=== PATIENT | male | born 1985 | race American Indian/Alaskan Native ===

== ENCOUNTER 2021-10-03 18:32 | Inpatient (IN) | payer SELFPAY ==
[2021-10-03] MEDS ORDERED: IPRATROPIUM/ALBUTEROL SULFATE 3 ML AMPUL.NEB IH ONE (19:13)
[2021-10-03] MEDS ORDERED: ALBUTEROL 2.5 MG/3 ML NEBU IH ONE ×4 (19:13→20:53)
[2021-10-03] MEDS ORDERED: BENZONATATE 100 MG CAP PO ONE (19:32)
[2021-10-03] MEDS ORDERED: IPRATROPIUM 0.02% NEBU 2.5 ML IH ONE ×3 (19:32→20:53)
[2021-10-03] MEDS ORDERED: methylPREDNISolone Sod Succinate 125 MG/2 ML INJ IM ONE (19:32)
[2021-10-03] MEDS ORDERED: ACETAMINOPHEN W/CODEINE 300-30 MG TAB PO ONE (19:32)
--- NOTE | 2021-10-03 19:52 | XRay Report ---
Chest single view INDICATION: Dyspnea IMPRESSION: The lungs appear slightly hyperexpanded and there is pleural-parenchymal thickening along the right lung base. Signer Name: Osei España MD Signed: 10/03/2021 7:47 PM Workstation Name: Exie
[2021-10-03] MEDS ORDERED: MAGNESIUM SULFATE 2 GM/50 ML BAG IV ONE (20:00)
--- NOTE | 2021-10-03 21:08 | Emergency Department Report ---
ED Shortness of Breath HPI - General Chief Complaint: Dyspnea/Respdistress Stated Complaint: JAVIER Time Seen by Provider: 10/03/21 19:29 Source: patient Mode of arrival: Ambulatory Limitations: No Limitations - History of Present Illness Initial Comments: 36-year-old male with a past medical history of asthma and 1 intubation last year presents to the hospital complaining of wheezing and short of breath since last night. Patient has been taking bronchodilators all day and using Singulair without improvement. Symptoms worsened this evening. Patient initially placed in a CC however, brought to my attention due to increased diaphoresis and respiratory distress despite bronchodilators. Productive cough reported without fever BiPAP initiated. Patient has a history of BiPAP in the past. - Related Data Allergies Allergy/AdvReac Type Severity Reaction Status Date / Time No Known Allergies Allergy Unverified 10/03/21 19:06 ED Review of Systems ROS: Stated complaint: JAVIER Other details as noted in HPI Comment: All other systems reviewed and negative ED Past Medical Hx - Past Medical History Previous Medical History?: Yes Hx Asthma: Yes ED Physical Exam - General Limitations: No Limitations - Other Other exam information: General: Acute respiratory distress Head: Atraumatic Eyes: normal appearance ENT: Moist mucous membranes Neck: Normal appearance, no midline tenderness Chest: Tachypnea, excessive muscle use, inspiratory and expiratory wheeze, unable to speak due to shortness of CV: Tachycardic regular rhythm Abdomen: Soft, normal bowel sounds, nontender, nondistended, no rebound or guarding Back: Normal inspection Extremity: Normal inspection, full range of motion Neuro: Alert O x 3, no facial asymmetry, speech clear, no gross motor sensory deficit Psych: Appropriate behavior Skin: Diaphoretic ED Course Vital Signs 10/03/21 10/03/21 10/03/21 19:05 19:39 20:49 Temperature 98.2 F Pulse Rate 133 H 133 H Pulse Rate [ 133 H Bilateral] Respiratory 18 23 Rate Respiratory 20 Rate [Bilateral ] Blood Pressure 138/95 [Left] O2 Sat by Pulse 92 99 Oximetry 10/03/21 10/03/21 20:54 22:11 Temperature 98 F Pulse Rate 132 H Pulse Rate [ 128 H Bilateral] Respiratory 18 Rate Respiratory 20 Rate [Bilateral ] Blood Pressure 118/100 [Left] O2 Sat by Pulse 99 Oximetry ED Medical Decision Making - Lab Data Result diagrams: 10/03/21 21:08 10/03/21 21:08 Lab Results 10/03/21 10/03/21 Range/Units 21:08 21:08 WBC 17.8 H (4.5-11.0) K/mm3 RBC 5.69 H (3.65-5.03) M/mm3 Hgb 17.0 H (11.8-15.2) gm/dl Hct 51.0 H (35.5-45.6) % MCV 90 (84-94) fl MCH 30 (28-32) pg MCHC 33 (32-34) % RDW 14.7 (13.2-15.2) % Plt Count 244 (140-440) K/mm3 Lymph % (Auto) 7.0 L (13.4-35.0) % Quay % (Auto) 3.9 (0.0-7.3) % Eos % (Auto) 0.4 (0.0-4.3) % Baso % (Auto) 0.6 (0.0-1.8) % Lymph # (Auto) 1.3 (1.2-5.4) K/mm3 Quay # (Auto) 0.7 (0.0-0.8) K/mm3 Eos # (Auto) 0.1 (0.0-0.4) K/mm3 Baso # (Auto) 0.1 (0.0-0.1) K/mm3 Seg Neutrophils % 88.1 H (40.0-70.0) % Seg Neutrophils # 15.7 H (1.8-7.7) K/mm3 Sodium 139 (137-145) mmol/L Potassium 4.3 (3.6-5.0) mmol/L Chloride 97.0 L (98-107) mmol/L Carbon Dioxide 25 (22-30) mmol/L Anion Gap 21 mmol/L BUN 14 (9-20) mg/dL Creatinine 1.0 (0.8-1.3) mg/dL Estimated GFR > 60 ml/min BUN/Creatinine Ratio 14 % Glucose 122 H (75-100) mg/dL Calcium 9.8 (8.4-10.2) mg/dL - EKG Data -: EKG Interpreted by Wi EKG shows normal: sinus rhythm, ST-T waves (No STEMI) Rate: tachycardia (129) - Radiology Data Radiology results: report reviewed Chest single view INDICATION: Dyspnea IMPRESSION: The lungs appear slightly hyperexpanded and there is pleural-parenchymal thickening along the right lung base. - Medical Decision Making 36-year-old male with asthma presents with acute respiratory distress requiring aggressive continuous bronchodilators and BiPAP support. X-ray without infiltrate. Mild leukocytosis noted which could be secondary to stress reaction. Patient also treated with Solu-Medrol and magnesium. Patient will be admitted to the hospitalist service for admission Critical Care Time: Yes Critical care time in (mins) excluding proc time.: 40 Critical care attestation.: If time is entered above; I have spent that time in minutes in the direct care of this critically ill patient, excluding procedure time. Critical Care Time: 40 Minutes of critical care time excluding procedures were used in the care of the patient. I discussed treatment plan with the nursing team members. I reviewed electronic record. Patient required multiple interventions and reassessments. Patient to be admitted to the hospitalist service ED Disposition Clinical Impression: Status asthmaticus Disposition: ADMITTED INPATIENT Is pt being admited?: Yes Condition: Stable Time of Disposition: 22:15
[2021-10-03 21:32] LABS: Basophils # (Auto) 0.1 K/mm3 (0.0-0.1); Basophils % (Auto) 0.6 % (0.0-1.8); Eosinophils # (Auto) 0.1 K/mm3 (0.0-0.4); Eosinophils % (Auto) 0.4 % (0.0-4.3); Lymphocytes # (Auto) 1.3 K/mm3 (1.2-5.4); Mean Corpuscular HGB Conc 33 % (32-34); Mean Corpuscular Volume 90 fl (84-94); Monocytes # (Auto) 0.7 K/mm3 (0.0-0.8); Monocytes % (Auto) 3.9 % (0.0-7.3); Platelet Count 244 K/mm3 (140-440); Red Blood Count 5.69 M/mm3 (3.65-5.03); Red Cell Distribution Width 14.7 % (13.2-15.2)
[2021-10-03 21:50] LABS: BUN/Creatinine Ratio 14; Blood Urea Nitrogen 14 mg/dL (9-20); Calcium 9.8 mg/dL (8.4-10.2); Hemolysis Index 7
[2021-10-03] MEDS ORDERED: MORPHINE 2 MG/1 ML INJ IV PRN (23:02)
[2021-10-03] MEDS ORDERED: ACETAMINOPHEN 325 MG TAB PO PRN (23:02)
[2021-10-03] MEDS ORDERED: MORPHINE 4 MG/1 ML INJ IV PRN (23:02)
[2021-10-03] MEDS ORDERED: ONDANSETRON 4 MG/2 ML INJ IV PRN (23:02)
[2021-10-03] MEDS ORDERED: ALBUTEROL 2.5 MG/3 ML NEBU IH PRN (23:02)
--- NOTE | 2021-10-03 23:09 | History and Physical Report ---
History of Present Illness Date of examination: 10/03/21 Date of admission: 10/03/21 Chief complaint: Dyspnea Acute asthma exacerbation History of present illness: 36-year-old male with history of asthma and intubation last year was brought to the emergency room because of wheezing and short of breath since last night. Patient has been taking bronchodilators all day and using Singulair without improvement. Symptoms worsened this evening. Patient initially placed in a CC however, brought to my attention due to increased diaphoresis and respiratory distress despite bronchodilators. Productive cough reported without fever BiPAP initiated. Patient has a history of BiPAP in the past. In the emergency room patient is found to have WBC of 17.8 also patient is found to have acute asthma exacerbation so going to admit the patient we will put the patient on BiPAP, Solu-Medrol, antibiotic and singular Past History Past Medical History: other (Asthma and intubation) Past Surgical History: No surgical history Social history: smoking Family history: hypertension Medications and Allergies Allergies Allergy/AdvReac Type Severity Reaction Status Date / Time No Known Allergies Allergy Unverified 10/03/21 19:06 Review of Systems All systems: negative Cardiovascular: shortness of breath, dyspnea on exertion Respiratory: cough, shortness of breath, dyspnea on exertion, wheezing Exam - Constitutional Vitals: Temp Pulse Resp BP Pulse Ox 98 F 132 H 18 118/100 99 10/03/21 22:11 10/03/21 22:11 10/03/21 22:11 10/03/21 22:11 10/03/21 22:11 General appearance: Present: mild distress, well-nourished - EENT Eyes: Present: PERRL ENT: hearing intact, clear oral mucosa - Neck Neck: Present: supple, normal ROM - Respiratory Respiratory effort: normal Respiratory: bilateral: wheezing - Cardiovascular Heart Sounds: Present: S1 & S2. Absent: rub, click - Extremities Extremities: pulses symmetrical, No edema Peripheral Pulses: within normal limits - Abdominal General gastrointestinal: Present: soft, non-tender, non-distended, normal bowel sounds Male genitourinary: Present: normal - Integumentary Integumentary: Present: clear, warm, dry - Musculoskeletal Musculoskeletal: gait normal, strength equal bilaterally - Psychiatric Psychiatric: appropriate mood/affect, intact judgment & insight - Neurologic Neurologic: CNII-XII intact, moves all extremities Results - Labs CBC & Chem 7: 10/03/21 21:08 10/03/21 21:08 Labs: Laboratory Last Values WBC 17.8 K/mm3 (4.5-11.0) H 10/03/21 21:08 RBC 5.69 M/mm3 (3.65-5.03) H 10/03/21 21:08 Hgb 17.0 gm/dl (11.8-15.2) H 10/03/21 21:08 Hct 51.0 % (35.5-45.6) H 10/03/21 21:08 MCV 90 fl (84-94) 10/03/21 21:08 MCH 30 pg (28-32) 10/03/21 21:08 MCHC 33 % (32-34) 10/03/21 21:08 RDW 14.7 % (13.2-15.2) 10/03/21 21:08 Plt Count 244 K/mm3 (140-440) 10/03/21 21:08 Lymph % (Auto) 7.0 % (13.4-35.0) L 10/03/21 21:08 Kemper % (Auto) 3.9 % (0.0-7.3) 10/03/21 21:08 Eos % (Auto) 0.4 % (0.0-4.3) 10/03/21 21:08 Baso % (Auto) 0.6 % (0.0-1.8) 10/03/21 21:08 Lymph # (Auto) 1.3 K/mm3 (1.2-5.4) 10/03/21 21:08 Kemper # (Auto) 0.7 K/mm3 (0.0-0.8) 10/03/21 21:08 Eos # (Auto) 0.1 K/mm3 (0.0-0.4) 10/03/21 21:08 Baso # (Auto) 0.1 K/mm3 (0.0-0.1) 10/03/21 21:08 Seg Neutrophils % 88.1 % (40.0-70.0) H 10/03/21 21:08 Seg Neutrophils # 15.7 K/mm3 (1.8-7.7) H 10/03/21 21:08 Sodium 139 mmol/L (137-145) 10/03/21 21:08 Potassium 4.3 mmol/L (3.6-5.0) 10/03/21 21:08 Chloride 97.0 mmol/L (98-107) L 10/03/21 21:08 Carbon Dioxide 25 mmol/L (22-30) 10/03/21 21:08 Anion Gap 21 mmol/L 10/03/21 21:08 BUN 14 mg/dL (9-20) 10/03/21 21:08 Creatinine 1.0 mg/dL (0.8-1.3) 10/03/21 21:08 Estimated GFR > 60 ml/min 10/03/21 21:08 BUN/Creatinine Ratio 14 % 10/03/21 21:08 Glucose 122 mg/dL (75-100) H 10/03/21 21:08 Calcium 9.8 mg/dL (8.4-10.2) 10/03/21 21:08 - Imaging and Cardiology Chest x-ray: report reviewed Assessment and Plan VTE prophylaxis?: Chemical Plan of care discussed with patient/family: Yes - Patient Problems (1) Status asthmaticus Current Visit: Yes Status: Acute Plan to address problem: Admit the patient to the medical telemetry. Patient is on BiPAP. DuoNeb by nebulizer every 4 hours. Albuterol via nebulizer every 4 hours as needed. Solu-Medrol 40 mg IV every 6 hours. Singular 10 mg p.o. daily. Rocephin 2 g IV daily and Zithromax to 50 mg p.o. daily. We will do the blood culture and sputum culture. Recheck CBC in the morning (2) Tobacco abuse Current Visit: Yes Status: Acute Plan to address problem: We counseled the patient regarding quitting smoking. We will put the patient on nicotine patch if needed (3) Shortness of breath Current Visit: Yes Status: Acute Plan to address problem: Patient is on BiPAP. DuoNeb by nebulizer every 4 hours. Albuterol via nebulizer every 4 hours as needed. Solu-Medrol 40 mg IV every 6 hours. Singular 10 mg p.o. daily. Rocephin 2 g IV daily and Zithromax to 50 mg p.o. daily. We will do the blood culture and sputum culture. Recheck CBC in the morning (4) DVT prophylaxis Current Visit: Yes Status: Acute Plan to address problem: SCD for DVT prophylaxis. Pepcid 20 mg p.o. twice daily for GI prophylaxis. Patient is a full code
[2021-10-03] MEDS ORDERED: cefTRIAXone/NS 2 GM/100 ML 2 GM/100 ML BAG IV SCH (23:45)
[2021-10-04] MEDS: methylPREDNISolone Sod Succinate 125 MG/2 ML INJ IV SCH ×3 (00:15→18:15)
[2021-10-04] MEDS: methylPREDNISolone Sod Succinate 40 MG/1 ML INJ IV SCH ×2 (00:38→05:53)
[2021-10-04] MEDS ORDERED: ONDANSETRON 4 MG/2 ML INJ IV PRN (00:46)
[2021-10-04] MEDS: IPRATROPIUM/ALBUTEROL SULFATE 3 ML AMPUL.NEB IH SCH ×4 (01:39→20:30)
[2021-10-04 05:29] LABS: Hematocrit 53.9 % (35.5-45.6); Hemoglobin 17.4 gm/dl (11.8-15.2); Mean Corpuscular HGB Conc 32 % (32-34); Mean Corpuscular Volume 91 fl (84-94); Platelet Count 230 K/mm3 (140-440); Red Blood Count 5.91 M/mm3 (3.65-5.03); Red Cell Distribution Width 14.8 % (13.2-15.2)
[2021-10-04 05:37] LABS: BUN/Creatinine Ratio 17; Blood Urea Nitrogen 17 mg/dL (9-20); Calcium 9.5 mg/dL (8.4-10.2); Hemolysis Index 6
[2021-10-04 08:00] LABS: Band Neutrophils # (Manual) 0.1 K/mm3; Basophils % (Manual) 0 % (0.0-1.8); Eosinophils % (Manual) 0 % (0.0-4.3); Monocytes % (Manual) 0 % (0.0-7.3); Platelet Estimate Consistent w Auto; RBC Morphology Normal; Total Cells Counted 100
[2021-10-04] MEDS ORDERED: SODIUM POLYSTYRENE 15 GM/60 ML ORAL LIQD PO SCH (09:00)
[2021-10-04] MEDS: BUDESONIDE 0.5 MG/2 ML NEBU IH SCH ×2 (09:10→20:30)
--- NOTE | 2021-10-04 09:18 | Electrocardiograph Report ---
[facility] Test Date: 2021-10-03 Test Time: 20:22:52 Pat Name: FIONA NEVES Department: Room: A466 1 Gender: M Room Inspector: LARISA : 1985 Requested By: EARL CAMARA Order Number: [id number] Reading MD: Abhinav Rivas Measurements Intervals Geraldine Rate: 129 P: 91 CO: 151 QRS: 87 QRSD: 82 T: 49 QT: 301 QTc: 440 Interpretive Statements Sinus tachycardia LAE, consider biatrial enlargement No previous ECG available for comparison Electronically Signed On 10-04-2021 9:18:08 EDT by Abhinav Rivas
[2021-10-04] MEDS ORDERED: AZITHROMYCIN 250 MG TAB PO SCH (10:00)
[2021-10-04] MEDS: FAMOTIDINE 20 MG TAB PO SCH ×2 (11:09→21:32)
--- NOTE | 2021-10-04 11:42 | Progress Note ---
Assessment and Plan Assessment and plan: #Status asthmaticus Currently on BiPAP. Continue DuoNebs every 4 hours and albuterol nebs every 4 hours as needed Continue IV Solu-Medrol 40 mg every 8 hours, Singulair 10 mg daily Pending coronavirus PCR. Discontinuing Rocephin and azithromycin as there is low clinical suspicion for infection. Pulmonology consulted; pending recs Continue to monitor #Tobacco dependence #Tobacco/Smoking cessation counseling - Counseled patient about the importance of smoking cessation and the possible sequelae as a result of continued tobacco consumption. The patient expresses understanding. -Time: +15 mins Critical Care Billing: The high probability of a clinically significant, sudden or life threatening deterioration of the [respiratory] system(s) required my full and direct attention, intervention and personal management. The aggregate critical care time was [60] minutes. This time is in addition to time spent performing reported procedures but includes the following: [x] Data Review and interpretation [x] Patient assessment and monitoring of vital signs [x] Documentation [x] Medication orders and management #Discharge planning - Patient is pending resolution of status asthmaticus and patient no longer requiring supplemental oxygen - Case management has been made aware. - Discharge is tentatively 7296 hours. Disposition Plan: Continue medical management Total Time Spent with Patient (Minutes): 45 minutes History Interval history: No acute events overnight. Hospitalist Physical - Constitutional Vitals: Temp Pulse Resp BP Pulse Ox 97.2 F L 110 H 16 134/95 99 10/04/21 08:15 10/04/21 09:17 10/04/21 09:17 10/04/21 08:15 10/04/21 09:17 General appearance: Present: no acute distress, well-nourished - EENT Eyes: Present: PERRL, EOM intact ENT: hearing intact, clear oral mucosa, dentition normal - Neck Neck: Present: supple, normal ROM - Respiratory Respiratory effort: normal Respiratory: right: wheezing (On BiPAP; inspiratory and expiratory wheezes) - Cardiovascular Rhythm: regular Heart Sounds: Present: S1 & S2 - Extremities Extremities: no ischemia, pulses intact, pulses symmetrical, No edema, normal temperature, normal color Peripheral Pulses: within normal limits - Abdominal General gastrointestinal: soft, non-tender, non-distended, normal bowel sounds - Integumentary Integumentary: Present: clear, warm, dry - Psychiatric Psychiatric: appropriate mood/affect, intact judgment & insight, memory intact, cooperative - Neurologic Neurologic: CNII-XII intact, moves all extremities - Allied Health Allied health notes reviewed: nursing Results - Labs CBC & Chem 7: 10/04/21 04:48 10/04/21 04:48 Labs: Laboratory Last Values WBC 12.4 K/mm3 (4.5-11.0) H 10/04/21 04:48 RBC 5.91 M/mm3 (3.65-5.03) H 10/04/21 04:48 Hgb 17.4 gm/dl (11.8-15.2) H 10/04/21 04:48 Hct 53.9 % (35.5-45.6) H 10/04/21 04:48 MCV 91 fl (84-94) 10/04/21 04:48 MCH 30 pg (28-32) 10/04/21 04:48 MCHC 32 % (32-34) 10/04/21 04:48 RDW 14.8 % (13.2-15.2) 10/04/21 04:48 Plt Count 230 K/mm3 (140-440) 10/04/21 04:48 Lymph % (Auto) 7.0 % (13.4-35.0) L 10/03/21 21:08 Harnett % (Auto) 3.9 % (0.0-7.3) 10/03/21 21:08 Eos % (Auto) 0.4 % (0.0-4.3) 10/03/21 21:08 Baso % (Auto) 0.6 % (0.0-1.8) 10/03/21 21:08 Lymph # (Auto) 1.3 K/mm3 (1.2-5.4) 10/03/21 21:08 [place]arnett # (Auto) 0.7 K/mm3 (0.0-0.8) 10/03/21 21:08 Eos # (Auto) 0.1 K/mm3 (0.0-0.4) 10/03/21 21:08 Baso # (Auto) 0.1 K/mm3 (0.0-0.1) 10/03/21 21:08 Add Manual Diff Complete 10/04/21 04:48 Total Counted 100 10/04/21 04:48 Seg Neutrophils % Elementary Teacher 10/04/21 04:48 Seg Neuts % (Manual) 89.0 % (40.0-70.0) H 10/04/21 04:48 Band Neutrophils % 1.0 % 10/04/21 04:48 Lymphocytes % (Manual) 8.0 % (13.4-35.0) L 10/04/21 04:48 Reactive Lymphs % (Man) 2.0 % 10/04/21 04:48 Monocytes % (Manual) 0 % (0.0-7.3) 10/04/21 04:48 Eosinophils % (Manual) 0 % (0.0-4.3) 10/04/21 04:48 Basophils % (Manual) 0 % (0.0-1.8) 10/04/21 04:48 Metamyelocytes % 0 % 10/04/21 04:48 Myelocytes % 0 % 10/04/21 04:48 Promyelocytes % 0 % 10/04/21 04:48 Blast Cells % 0 % 10/04/21 04:48 Nucleated RBC % Not Reportable 10/04/21 04:48 Seg Neutrophils # 15.7 K/mm3 (1.8-7.7) H 10/03/21 21:08 Seg Neutrophils # Man 11.0 K/mm3 (1.8-7.7) H 10/04/21 04:48 Band Neutrophils # 0.1 K/mm3 10/04/21 04:48 Lymphocytes # (Manual) 1.0 K/mm3 (1.2-5.4) L 10/04/21 04:48 Abs React Lymphs (Man) 0.2 K/mm3 10/04/21 04:48 Monocytes # (Manual) 0.0 K/mm3 (0.0-0.8) 10/04/21 04:48 Eosinophils # (Manual) 0.0 K/mm3 (0.0-0.4) 10/04/21 04:48 Basophils # (Manual) 0.0 K/mm3 (0.0-0.1) 10/04/21 04:48 Metamyelocytes # 0.0 K/mm3 10/04/21 04:48 Myelocytes # 0.0 K/mm3 10/04/21 04:48 Promyelocytes # 0.0 K/mm3 10/04/21 04:48 Blast Cells # 0.0 K/mm3 10/04/21 04:48 WBC Morphology Not Reportable 10/04/21 04:48 Hypersegmented Neuts Not Reportable 10/04/21 04:48 Hyposegmented Neuts Not Reportable 10/04/21 04:48 Hypogranular Neuts Not Reportable 10/04/21 04:48 Smudge Cells Not Reportable 10/04/21 04:48 Toxic Granulation Not Reportable 10/04/21 04:48 Toxic Vacuolation Not Reportable 10/04/21 04:48 Dohle Bodies Not Reportable 10/04/21 04:48 Pelger-Huet Anomaly Not Reportable 10/04/21 04:48 Balaji Rods Not Reportable 10/04/21 04:48 Platelet Estimate Consistent w auto 10/04/21 04:48 Clumped Platelets Not Reportable 10/04/21 04:48 Plt Clumps, EDTA Not Reportable 10/04/21 04:48 Large Platelets Not Reportable 10/04/21 04:48 Giant Platelets Not Reportable 10/04/21 04:48 Platelet Satelliting Not Reportable 10/04/21 04:48 Plt Morphology Comment Not Reportable 10/04/21 04:48 RBC Morphology Normal 10/04/21 04:48 Dimorphic RBCs Not Reportable 10/04/21 04:48 Polychromasia Not Reportable 10/04/21 04:48 Hypochromasia Not Reportable 10/04/21 04:48 Poikilocytosis Not Reportable 10/04/21 04:48 Anisocytosis Not Reportable 10/04/21 04:48 Microcytosis Not Reportable 10/04/21 04:48 Macrocytosis Not Reportable 10/04/21 04:48 Spherocytes Not Reportable 10/04/21 04:48 Pappenheimer Bodies Not Reportable 10/04/21 04:48 Sickle Cells Not Reportable 10/04/21 04:48 Target Cells Not Reportable 10/04/21 04:48 Tear Drop Cells Not Reportable 10/04/21 04:48 Ovalocytes Not Reportable 10/04/21 04:48 Helmet Cells Not Reportable 10/04/21 04:48 Hartman-Woodstock Bodies Not Reportable 10/04/21 04:48 Fleming Rings Not Reportable 10/04/21 04:48 Lee Cells Not Reportable 10/04/21 04:48 Bite Cells Not Reportable 10/04/21 04:48 Crenated Cell Not Reportable 10/04/21 04:48 Elliptocytes Not Reportable 10/04/21 04:48 Acanthocytes (Spur) Not Reportable 10/04/21 04:48 Rouleaux Not Reportable 10/04/21 04:48 Hemoglobin C Crystals Not Reportable 10/04/21 04:48 Schistocytes Not Reportable 10/04/21 04:48 Malaria parasites Not Reportable 10/04/21 04:48 Wyatt Bodies Not Reportable 10/04/21 04:48 Hem Pathologist Commnt No 10/04/21 04:48 Sodium 136 mmol/L (137-145) L 10/04/21 04:48 Potassium 5.4 mmol/L (3.6-5.0) H D 10/04/21 04:48 Chloride 95.8 mmol/L (98-107) L 10/04/21 04:48 Carbon Dioxide 24 mmol/L (22-30) 10/04/21 04:48 Anion Gap 22 mmol/L 10/04/21 04:48 BUN 17 mg/dL (9-20) 10/04/21 04:48 Creatinine 1.0 mg/dL (0.8-1.3) 10/04/21 04:48 Estimated GFR > 60 ml/min 10/04/21 04:48 BUN/Creatinine Ratio 17 % 10/04/21 04:48 Glucose 174 mg/dL (75-100) H 10/04/21 04:48 Calcium 9.5 mg/dL (8.4-10.2) 10/04/21 04:48 López/IV: Voiding Method Toilet Active Medications - Current Medications Current Medications: Generic Name Dose Route Start Last Admin Trade Name Freq PRN Reason Stop Dose Admin Acetaminophen 650 mg 10/03/21 23:02 Acetaminophen 325 Mg Tab PO Q4H PRN Pain MILD(1-3)/Fever >100.5/PRESTON Albuterol 2.5 mg 10/03/21 23:02 Albuterol 2.5 Mg/3 Ml Nebu IH Q3HRT PRN Shortness Of Breath Albuterol/Ipratropium 1 ampul 10/04/21 02:00 10/04/21 09:10 Ipratropium/Albuterol Sulfate 3 Ml Ampul.Neb IH 1 ampul Q6HRT JAIME Administration Azithromycin 250 mg 10/04/21 10:00 10/04/21 11:09 Azithromycin 250 Mg Tab PO 250 mg QDAY JAIME Administration Protocol Budesonide 0.5 mg 10/04/21 08:00 10/04/21 09:10 Budesonide 0.5 Mg/2 Ml Nebu IH 0.5 mg Q12HRT JAIME Administration Famotidine 20 mg 10/04/21 10:00 10/04/21 11:09 Famotidine 20 Mg Tab PO 20 mg BID JAIME Administration Methylprednisolone Sodium Succinate 60 mg 10/04/21 12:00 Methylprednisolone Sod Succinate 125 Mg/2 Ml Inj IV Q6H JAIME Montelukast Sodium 10 mg 10/04/21 22:00 Montelukast 10 Mg Tab PO QHS JAIME Morphine Sulfate 2 mg 10/03/21 23:02 Morphine 2 Mg/1 Ml Inj IV Q4H PRN Pain, Moderate (4-6) Morphine Sulfate 4 mg 10/03/21 23:02 Morphine 4 Mg/1 Ml Inj IV Q4H PRN Pain , Severe (7-10) Ondansetron HCl 4 mg 10/04/21 00:46 10/04/21 00:50 Ondansetron 4 Mg/2 Ml Inj IV 4 mg Q6H PRN Administration Nausea And Vomiting Sodium Chloride 10 ml 10/04/21 10:00 10/04/21 11:09 Sodium Chloride 0.9% 10 Ml Flush Syringe IV 10 ml BID JAIME Administration Sodium Chloride 10 ml 10/03/21 23:02 Sodium Chloride 0.9% 10 Ml Flush Syringe IV PRN PRN LINE FLUSH Sodium Polystyrene Sulfonate 30 gm 10/04/21 09:00 10/04/21 11:09 Sodium Polystyrene 15 Gm/60 Ml Oral Liqd PO 10/04/21 13:00 30 gm ONCE@0900 JAIME Administration
[2021-10-04] MEDS ORDERED: methylPREDNISolone Sod Succinate 40 MG/1 ML INJ IV SCH ×2 (12:00→14:00)
--- NOTE | 2021-10-04 12:01 | Consultation ---
History of Present Illness Consult date: 10/04/21 Requesting physician: ROSY RANDLE Reason for consult: hypoxemia History of present illness: 36 y/o male with known Asthma admitted with acute respiratory failure. Patient originally from [facility]. Has been admitted 4x to the hospital in the last 7 years but most recently has had a hospital admit in 2019,2020 and now 2021. Patient takes meds regularly. Denies smoking. No GERD symptoms. He recently moved back to [place] and feels the change in climate may have triggered his asthma. He has been intubated once, but this was 2014. Remainder of the review is positive for taking allergy shots earlier in life. Past History Past Medical History: other (Asthma and intubation) Past Surgical History: No surgical history Social history: smoking Family history: hypertension Medications and Allergies Allergies Allergy/AdvReac Type Severity Reaction Status Date / Time No Known Allergies Allergy Unverified 10/03/21 19:06 Active Meds: Active Medications Acetaminophen (Acetaminophen 325 Mg Tab) 650 mg PO Q4H PRN PRN Reason: Pain MILD(1-3)/Fever >100.5/PRESTON Albuterol (Albuterol 2.5 Mg/3 Ml Nebu) 2.5 mg IH Q3HRT PRN PRN Reason: Shortness Of Breath Albuterol/Ipratropium (Ipratropium/Albuterol Sulfate 3 Ml Ampul.Neb) 1 ampul IH Q6HRT [facility] Last Admin: 10/04/21 09:10 Dose: 1 ampul Budesonide (Budesonide 0.5 Mg/2 Ml Nebu) 0.5 mg IH Q12HRT [facility] Last Admin: 10/04/21 09:10 Dose: 0.5 mg Famotidine (Famotidine 20 Mg Tab) 20 mg PO BID [facility] Last Admin: 10/04/21 11:09 Dose: 20 mg Methylprednisolone Sodium Succinate (Methylprednisolone Sod Succinate 125 Mg/2 Ml Inj) 60 mg IV Q6H [facility] Montelukast Sodium (Montelukast 10 Mg Tab) 10 mg PO QHS JAIME Morphine Sulfate (Morphine 2 Mg/1 Ml Inj) 2 mg IV Q4H PRN PRN Reason: Pain, Moderate (4-6) Morphine Sulfate (Morphine 4 Mg/1 Ml Inj) 4 mg IV Q4H PRN PRN Reason: Pain , Severe (7-10) Ondansetron HCl (Ondansetron 4 Mg/2 Ml Inj) 4 mg IV Q6H PRN PRN Reason: Nausea And Vomiting Last Admin: 10/04/21 00:50 Dose: 4 mg Sodium Chloride (Sodium Chloride 0.9% 10 Ml Flush Syringe) 10 ml IV BID [facility] Last Admin: 10/04/21 11:09 Dose: 10 ml Sodium Chloride (Sodium Chloride 0.9% 10 Ml Flush Syringe) 10 ml IV PRN PRN PRN Reason: LINE FLUSH Sodium Polystyrene Sulfonate (Sodium Polystyrene 15 Gm/60 Ml Oral Liqd) 30 gm PO ONCE@0900 [facility] Stop: 10/04/21 13:00 Last Admin: 10/04/21 11:09 Dose: 30 gm Patient takes Wilexa, Incruse and Singulair Review of Systems All systems: negative Physical Examination Vital signs: Vital Signs Temp Pulse Resp BP Pulse Ox 98.2 F 133 H 18 138/95 92 10/03/21 19:05 10/03/21 19:05 10/03/21 19:05 10/03/21 19:05 10/03/21 19:05 General appearance: appears uncomfortable, other (mild respiratory distress) Eyes: non-icteric, other (wearing corrective lens) ENT: oropharynx moist Neck: supple Effort: mildly labored Ascultation: Bilateral: wheezes Percussion: Bilateral: not dull Tactile fremitus: Bilateral: normal Cardiovascular: other (sinus tach) Gastrointestinal: normoactive bowel sounds, soft Integumentary: normal Extremities: no edema Musculoskeletal: no deformities normal mental status, non-focal exam mood appropriate Results - Laboratory Findings CBC and BMP: 10/04/21 04:48 10/04/21 04:48 Abnormal lab findings: Abnormal Labs 10/03/21 10/03/21 10/04/21 21:08 21:08 04:48 WBC 17.8 H 12.4 H RBC 5.69 H 5.91 H Hgb 17.0 H 17.4 H Hct 51.0 H 53.9 H Lymph % (Auto) 7.0 L Seg Neutrophils % 88.1 H Seg Neuts % (Manual) 89.0 H Lymphocytes % (Manual) 8.0 L Seg Neutrophils # 15.7 H Seg Neutrophils # Man 11.0 H Lymphocytes # (Manual) 1.0 L Sodium Potassium Chloride 97.0 L Glucose 122 H 10/04/21 04:48 WBC RBC Hgb Hct Lymph % (Auto) Seg Neutrophils % Seg Neuts % (Manual) Lymphocytes % (Manual) Seg Neutrophils # Seg Neutrophils # Man Lymphocytes # (Manual) Sodium 136 L Potassium 5.4 H D Chloride 95.8 L Glucose 174 H - Diagnostic Findings Chest x-ray: image reviewed (hyperinflation, but clear. Small bilateral pleural effusions) Assessment and Plan 36 y/o male with acute respiratory failure secondary to exacerbation of severe persistent asthma. 1. Increase steroids to 60q6 2. Agree with BId pulmicort and scheduled duonebs 3. Restart singular 4. Will add GERD therapy BID 5. NIV at night to give lungs a rest until bronchospasm has improved Will continue to follow along with you. Thank you for this consult
[2021-10-04] MEDS: MONTELUKAST 10 MG TAB PO SCH (21:32)
[2021-10-05] MEDS: IPRATROPIUM/ALBUTEROL SULFATE 3 ML AMPUL.NEB IH SCH ×6 (00:15→20:24)
[2021-10-05 05:45] LABS: Hematocrit 46.3 % (35.5-45.6); Hemoglobin 15.2 gm/dl (11.8-15.2); Mean Corpuscular HGB Conc 33 % (32-34); Mean Corpuscular Volume 89 fl (84-94); Platelet Count 219 K/mm3 (140-440); Red Blood Count 5.17 M/mm3 (3.65-5.03); Red Cell Distribution Width 14.8 % (13.2-15.2)
[2021-10-05 06:02] LABS: BUN/Creatinine Ratio 21; Blood Urea Nitrogen 21 mg/dL (9-20); Calcium 9.6 mg/dL (8.4-10.2); Hemolysis Index 3
[2021-10-05] MEDS: BUDESONIDE 0.5 MG/2 ML NEBU IH SCH ×2 (07:26→20:24)
[2021-10-05] MEDS: methylPREDNISolone Sod Succinate 125 MG/2 ML INJ IV SCH ×3 (07:31→18:11)
[2021-10-05 08:25] LABS: Basophils % (Manual) 0 % (0.0-1.8); Eosinophils % (Manual) 0 % (0.0-4.3); Platelet Estimate Consistent w Auto; RBC Morphology Normal; Total Cells Counted 100
[2021-10-05 08:27] LABS: ABG HCO3 32.2 mmol/L (20.0-26.0); ABG Methemoglobin 0.5 % (0.0-1.5); ABG PCO2 57.1 mm Hg; ABG PH 7.368 pH Units (7.350-7.450); ABG PO2 70.7 mm Hg (80.0-90.0)
--- NOTE | 2021-10-05 11:36 | Progress Note ---
Assessment and Plan Assessment and plan: #Status asthmaticus Currently on BiPAP. Continue DuoNebs every 4 hours and albuterol nebs every 4 hours as needed Continue IV Solu-Medrol 60 mg every 6 hours, Singulair 10 mg daily Pending coronavirus PCR. Discontinuing Rocephin and azithromycin as there is low clinical suspicion for infection. Pulmonology consulted; appreciate recs. Continue NIV at night to give lungs a rest until bronchospasm has improved. Continue to monitor #Tobacco dependence #Tobacco/Smoking cessation counseling - Counseled patient about the importance of smoking cessation and the possible sequelae as a result of continued tobacco consumption. The patient expresses understanding. -Time: +15 mins Critical Care Billing: The high probability of a clinically significant, sudden or life threatening deterioration of the [respiratory] system(s) required my full and direct attention, intervention and personal management. The aggregate critical care time was [60] minutes. This time is in addition to time spent performing reported procedures but includes the following: [x] Data Review and interpretation [x] Patient assessment and monitoring of vital signs [x] Documentation [x] Medication orders and management #Discharge planning - Patient is pending resolution of status asthmaticus and patient no longer requiring supplemental oxygen - Case management has been made aware. - Discharge is tentatively 4872 hours. Disposition Plan: Continue medical management Total Time Spent with Patient (Minutes): 45 min History Interval history: Patient describes having a rough night after being denied NIV by the respiratory therapist. He continued to cough and wheeze. He was eventually placed back on BiPAP early this morning. Hospitalist Physical - Constitutional Vitals: Temp Pulse Resp BP Pulse Ox 97.6 F 118 H 17 128/84 100 10/05/21 07:45 10/05/21 08:19 10/05/21 08:19 10/05/21 07:45 10/05/21 08:19 General appearance: Present: no acute distress, well-nourished - EENT Eyes: Present: PERRL, EOM intact ENT: hearing intact, clear oral mucosa, dentition normal - Neck Neck: Present: supple, normal ROM - Respiratory Respiratory effort: normal Respiratory: bilateral: wheezing (on BiPAP) - Cardiovascular Heart rate: 120 Rhythm: regular Heart Sounds: Present: S1 & S2 - Extremities Extremities: no ischemia, pulses intact, pulses symmetrical, No edema, normal temperature, normal color, Full ROM Peripheral Pulses: within normal limits - Abdominal General gastrointestinal: soft, non-tender, non-distended, normal bowel sounds - Integumentary Integumentary: Present: clear, warm, dry - Psychiatric Psychiatric: appropriate mood/affect, intact judgment & insight, memory intact, cooperative - Neurologic Neurologic: CNII-XII intact, moves all extremities - Allied Health Allied health notes reviewed: nursing Results - Labs CBC & Chem 7: 10/05/21 05:06 10/05/21 05:06 Labs: Laboratory Last Values WBC 16.4 K/mm3 (4.5-11.0) H 10/05/21 05:06 RBC 5.17 M/mm3 (3.65-5.03) H 10/05/21 05:06 Hgb 15.2 gm/dl (11.8-15.2) 10/05/21 05:06 Hct 46.3 % (35.5-45.6) H D 10/05/21 05:06 MCV 89 fl (84-94) 10/05/21 05:06 MCH 29 pg (28-32) 10/05/21 05:06 MCHC 33 % (32-34) 10/05/21 05:06 RDW 14.8 % (13.2-15.2) 10/05/21 05:06 Plt Count 219 K/mm3 (140-440) 10/05/21 05:06 Lymph % (Auto) 7.0 % (13.4-35.0) L 10/03/21 21:08 [place] % (Auto) 3.9 % (0.0-7.3) 10/03/21 21:08 Eos % (Auto) 0.4 % (0.0-4.3) 10/03/21 21:08 Baso % (Auto) 0.6 % (0.0-1.8) 10/03/21 21:08 Lymph # (Auto) 1.3 K/mm3 (1.2-5.4) 10/03/21 21:08 [place] # (Auto) 0.7 K/mm3 (0.0-0.8) 10/03/21 21:08 Eos # (Auto) 0.1 K/mm3 (0.0-0.4) 10/03/21 21:08 Baso # (Auto) 0.1 K/mm3 (0.0-0.1) 10/03/21 21:08 Add Manual Diff Complete 10/05/21 05:06 Total Counted 100 10/05/21 05:06 Seg Neutrophils % Show Card Writer 10/05/21 05:06 Seg Neuts % (Manual) 94.0 % (40.0-70.0) H 10/05/21 05:06 Band Neutrophils % 0 % 10/05/21 05:06 Lymphocytes % (Manual) 5.0 % (13.4-35.0) L 10/05/21 05:06 Reactive Lymphs % (Man) 0 % 10/05/21 05:06 Monocytes % (Manual) 1.0 % (0.0-7.3) 10/05/21 05:06 Eosinophils % (Manual) 0 % (0.0-4.3) 10/05/21 05:06 Basophils % (Manual) 0 % (0.0-1.8) 10/05/21 05:06 Metamyelocytes % 0 % 10/05/21 05:06 Myelocytes % 0 % 10/05/21 05:06 Promyelocytes % 0 % 10/05/21 05:06 Blast Cells % 0 % 10/05/21 05:06 Nucleated RBC % Not Reportable 10/05/21 05:06 Seg Neutrophils # 15.7 K/mm3 (1.8-7.7) H 10/03/21 21:08 Seg Neutrophils # Man 15.4 K/mm3 (1.8-7.7) H 10/05/21 05:06 Band Neutrophils # 0.0 K/mm3 10/05/21 05:06 Lymphocytes # (Manual) 0.8 K/mm3 (1.2-5.4) L 10/05/21 05:06 Abs React Lymphs (Man) 0.0 K/mm3 10/05/21 05:06 Monocytes # (Manual) 0.2 K/mm3 (0.0-0.8) 10/05/21 05:06 Eosinophils # (Manual) 0.0 K/mm3 (0.0-0.4) 10/05/21 05:06 Basophils # (Manual) 0.0 K/mm3 (0.0-0.1) 10/05/21 05:06 Metamyelocytes # 0.0 K/mm3 10/05/21 05:06 Myelocytes # 0.0 K/mm3 10/05/21 05:06 Promyelocytes # 0.0 K/mm3 10/05/21 05:06 Blast Cells # 0.0 K/mm3 10/05/21 05:06 WBC Morphology Not Reportable 10/05/21 05:06 Hypersegmented Neuts Not Reportable 10/05/21 05:06 Hyposegmented Neuts Not Reportable 10/05/21 05:06 Hypogranular Neuts Not Reportable 10/05/21 05:06 Smudge Cells Not Reportable 10/05/21 05:06 Toxic Granulation Not Reportable 10/05/21 05:06 Toxic Vacuolation Not Reportable 10/05/21 05:06 Dohle Bodies Not Reportable 10/05/21 05:06 Pelger-Huet Anomaly Not Reportable 10/05/21 05:06 Balaji Rods Not Reportable 10/05/21 05:06 Platelet Estimate Consistent w auto 10/05/21 05:06 Clumped Platelets Not Reportable 10/05/21 05:06 Plt Clumps, EDTA Not Reportable 10/05/21 05:06 Large Platelets Not Reportable 10/05/21 05:06 Giant Platelets Not Reportable 10/05/21 05:06 Platelet Satelliting Not Reportable 10/05/21 05:06 Plt Morphology Comment Not Reportable 10/05/21 05:06 RBC Morphology Normal 10/05/21 05:06 Dimorphic RBCs Not Reportable 10/05/21 05:06 Polychromasia Not Reportable 10/05/21 05:06 Hypochromasia Not Reportable 10/05/21 05:06 Poikilocytosis Not Reportable 10/05/21 05:06 Anisocytosis Not Reportable 10/05/21 05:06 Microcytosis Not Reportable 10/05/21 05:06 Macrocytosis Not Reportable 10/05/21 05:06 Spherocytes Not Reportable 10/05/21 05:06 Pappenheimer Bodies Not Reportable 10/05/21 05:06 Sickle Cells Not Reportable 10/05/21 05:06 Target Cells Not Reportable 10/05/21 05:06 Tear Drop Cells Not Reportable 10/05/21 05:06 Ovalocytes Not Reportable 10/05/21 05:06 Helmet Cells Not Reportable 10/05/21 05:06 Hartman-Lazy Y U Bodies Not Reportable 10/05/21 05:06 [place] Rings Not Reportable 10/05/21 05:06 [place] Cells Not Reportable 10/05/21 05:06 Bite Cells Not Reportable 10/05/21 05:06 Crenated Cell Not Reportable 10/05/21 05:06 Elliptocytes Not Reportable 10/05/21 05:06 Acanthocytes (Spur) Not Reportable 10/05/21 05:06 Rouleaux Not Reportable 10/05/21 05:06 Hemoglobin C Crystals Not Reportable 10/05/21 05:06 Schistocytes Not Reportable 10/05/21 05:06 Malaria parasites Not Reportable 10/05/21 05:06 Wyatt Bodies Not Reportable 10/05/21 05:06 Hem Pathologist Commnt No 10/05/21 05:06 ABG pH 7.368 pH Units (7.350-7.450) 10/05/21 08:11 ABG pCO2 57.1 mm Hg 10/05/21 08:11 ABG pO2 70.7 mm Hg (80.0-90.0) L 10/05/21 08:11 ABG HCO3 32.2 mmol/L (20.0-26.0) H 10/05/21 08:11 ABG O2 Saturation 95.0 % (95.0-99.0) 10/05/21 08:11 ABG O2 Content 20.8 (0.0-44) 10/05/21 08:11 ABG Base Excess 5.0 mmol/L (-2.0-3.0) H 10/05/21 08:11 ABG Hemoglobin 15.9 gm/dl (14.0-18.0) 10/05/21 08:11 ABG Carboxyhemoglobin 1.1 % (0.0-5.0) 10/05/21 08:11 ABG Methemoglobin 0.5 % (0.0-1.5) 10/05/21 08:11 Oxyhemoglobin 93.5 % (95.0-99.0) L 10/05/21 08:11 FiO2 30 % 10/05/21 08:11 Sodium 141 mmol/L (137-145) 10/05/21 05:06 Potassium 4.3 mmol/L (3.6-5.0) D 10/05/21 05:06 Chloride 97.7 mmol/L (98-107) L 10/05/21 05:06 Carbon Dioxide 31 mmol/L (22-30) H D 10/05/21 05:06 Anion Gap 17 mmol/L 10/05/21 05:06 BUN 21 mg/dL (9-20) H 10/05/21 05:06 Creatinine 1.0 mg/dL (0.8-1.3) 10/05/21 05:06 Estimated GFR > 60 ml/min 10/05/21 05:06 BUN/Creatinine Ratio 21 % 10/05/21 05:06 Glucose 143 mg/dL (75-100) H 10/05/21 05:06 Calcium 9.6 mg/dL (8.4-10.2) 10/05/21 05:06 Coronavirus (PCR) Negative (Negative) 10/04/21 11:00 López/IV: Voiding Method Toilet Active Medications - Current Medications Current Medications: Generic Name Dose Route Start Last Admin Trade Name Freq PRN Reason Stop Dose Admin Acetaminophen 650 mg 10/03/21 23:02 Acetaminophen 325 Mg Tab PO Q4H PRN Pain MILD(1-3)/Fever >100.5/PRESTON Albuterol 2.5 mg 10/03/21 23:02 Albuterol 2.5 Mg/3 Ml Nebu IH Q3HRT PRN Shortness Of Breath Albuterol/Ipratropium 1 ampul 10/04/21 16:00 10/05/21 07:26 Ipratropium/Albuterol Sulfate 3 Ml Ampul.Neb IH 1 ampul Q4HRT JAIME Administration Budesonide 0.5 mg 10/04/21 08:00 10/05/21 07:26 Budesonide 0.5 Mg/2 Ml Nebu IH 0.5 mg Q12HRT JAIME Administration Chlorpromazine HCl 10 mg 10/05/21 06:44 Chlorpromazine 10 Mg Tab PO Q6H PRN Hiccups Famotidine 20 mg 10/04/21 10:00 10/04/21 21:32 Famotidine 20 Mg Tab PO 20 mg BID JAIME Administration Losartan Potassium 50 mg 10/05/21 10:00 Losartan 50 Mg Tab PO QDAY JAIME Methylprednisolone Sodium Succinate 60 mg 10/04/21 12:00 10/05/21 07:31 Methylprednisolone Sod Succinate 125 Mg/2 Ml Inj IV 60 mg Q6H JAIME Administration Montelukast Sodium 10 mg 10/04/21 22:00 10/04/21 21:32 Montelukast 10 Mg Tab PO 10 mg QHS JAIME Administration Morphine Sulfate 2 mg 10/03/21 23:02 Morphine 2 Mg/1 Ml Inj IV Q4H PRN Pain, Moderate (4-6) Morphine Sulfate 4 mg 10/03/21 23:02 Morphine 4 Mg/1 Ml Inj IV Q4H PRN Pain , Severe (7-10) Ondansetron HCl 4 mg 10/04/21 00:46 10/04/21 00:50 Ondansetron 4 Mg/2 Ml Inj IV 4 mg Q6H PRN Administration Nausea And Vomiting Pseudoephedrine/Acetam/Chlorphenir 15 ml 10/05/21 10:30 Guaifenesin/Codeine 100-10mg Oral Liqd 5 Ml PO Q4H PRN Cough Sodium Chloride 10 ml 10/04/21 10:00 10/04/21 21:33 Sodium Chloride 0.9% 10 Ml Flush Syringe IV 10 ml BID JAIME Administration Sodium Chloride 10 ml 10/03/21 23:02 Sodium Chloride 0.9% 10 Ml Flush Syringe IV PRN PRN LINE FLUSH
[2021-10-05] MEDS: LOSARTAN 50 MG TAB PO SCH (12:06)
[2021-10-05] MEDS: FAMOTIDINE 20 MG TAB PO SCH ×2 (12:07→21:12)
--- NOTE | 2021-10-05 13:02 | Progress Note ---
Assessment and Plan 36 y/o male with acute respiratory failure secondary to exacerbation of severe persistent asthma. 10/05/21: Continue high dose steroids. Bipap must be worn at night and PRN during the day. Given the amount of distress this am, will leave on continuous therapy for now. Discussed with charge nurse and rT today that NIV must be worn tonight and if any questions please call me as I am employer relations representative [phone]. 1. Increase steroids to 60q6 2. Agree with BId pulmicort and scheduled duonebs 3. Restart singular 4. Will add GERD therapy BID 5. NIV at night to give lungs a rest until bronchospasm has improved Will continue to follow along with you. Thank you for this consult Subjective Date of service: 10/05/21 Interval history: Did not have bipap placed last night. Not documented as to why and had to be placed on it this am secondary to significant respiratory distress. Objective Vital Signs - 12hr 10/05/21 10/05/21 10/05/21 01:00 03:53 04:00 Temperature 97.8 F Pulse Rate 104 H Pulse Rate [ 105 H Bilateral] Respiratory 20 Rate Respiratory 18 Rate [Bilateral ] Blood Pressure 141/103 O2 Sat by Pulse 98 98 Oximetry 10/05/21 10/05/21 10/05/21 07:26 07:35 07:45 Temperature 97.6 F Pulse Rate 121 H Pulse Rate [ 124 H Bilateral] Respiratory 22 Rate Respiratory 26 H Rate [Bilateral ] Blood Pressure 136/89 128/84 O2 Sat by Pulse 98 98 Oximetry 10/05/21 10/05/21 10/05/21 08:19 11:06 11:42 Temperature 98.7 F Pulse Rate 118 H 117 H Pulse Rate [ 117 H Bilateral] Respiratory 17 14 18 Rate Respiratory 15 Rate [Bilateral ] Blood Pressure 140/88 O2 Sat by Pulse 100 98 Oximetry 10/05/21 11:48 Temperature 97.4 F L Pulse Rate Pulse Rate [ Bilateral] Respiratory 18 Rate Respiratory Rate [Bilateral ] Blood Pressure 116/68 O2 Sat by Pulse 100 Oximetry Constitutional: appears uncomfortable, other (mild respiratory distress) Eyes: non-icteric, other (wearing corrective lens) ENT: oropharynx moist Neck: supple Effort: mildly labored Ascultation: Bilateral: wheezes Percussion: Bilateral: not dull Tactile fremitus: Bilateral: normal Cardiovascular: other (sinus tach) Gastrointestinal: normoactive bowel sounds, soft Integumentary: normal Extremities: no edema Neurologic: normal mental status, non-focal exam Psychiatric: mood appropriate CBC and BMP: 10/05/21 05:06 10/05/21 05:06 ABG, PT/INR, D-dimer: ABG ABG pH 7.368 pH Units (7.350-7.450) 10/05/21 08:11 ABG pCO2 57.1 mm Hg 10/05/21 08:11 ABG pO2 70.7 mm Hg (80.0-90.0) L 10/05/21 08:11 ABG O2 Saturation 95.0 % (95.0-99.0) 10/05/21 08:11 Abnormal lab findings: Abnormal Labs 10/03/21 10/03/21 10/04/21 21:08 21:08 04:48 WBC 17.8 H 12.4 H RBC 5.69 H 5.91 H Hgb 17.0 H 17.4 H Hct 51.0 H 53.9 H Lymph % (Auto) 7.0 L Seg Neutrophils % 88.1 H Seg Neuts % (Manual) 89.0 H Lymphocytes % (Manual) 8.0 L Seg Neutrophils # 15.7 H Seg Neutrophils # Man 11.0 H Lymphocytes # (Manual) 1.0 L ABG pO2 ABG HCO3 ABG Base Excess Oxyhemoglobin Sodium Potassium Chloride 97.0 L Carbon Dioxide BUN Glucose 122 H 10/04/21 10/05/21 10/05/21 04:48 05:06 05:06 WBC 16.4 H RBC 5.17 H Hgb Hct 46.3 H D Lymph % (Auto) Seg Neutrophils % Seg Neuts % (Manual) 94.0 H Lymphocytes % (Manual) 5.0 L Seg Neutrophils # Seg Neutrophils # Man 15.4 H Lymphocytes # (Manual) 0.8 L ABG pO2 ABG HCO3 ABG Base Excess Oxyhemoglobin Sodium 136 L Potassium 5.4 H D Chloride 95.8 L 97.7 L Carbon Dioxide 31 H D BUN 21 H Glucose 174 H 143 H 10/05/21 08:11 WBC RBC Hgb Hct Lymph % (Auto) Seg Neutrophils % Seg Neuts % (Manual) Lymphocytes % (Manual) Seg Neutrophils # Seg Neutrophils # Man Lymphocytes # (Manual) ABG pO2 70.7 L ABG HCO3 32.2 H ABG Base Excess 5.0 H Oxyhemoglobin 93.5 L Sodium Potassium Chloride Carbon Dioxide BUN Glucose
[2021-10-05] MEDS: guaiFENesin/CODEINE 100-10MG ORAL LIQD 5 ML PO PRN ×2 (16:15→21:12)
[2021-10-05] MEDS: MONTELUKAST 10 MG TAB PO SCH (21:12)
[2021-10-06] MEDS: guaiFENesin/CODEINE 100-10MG ORAL LIQD 5 ML PO PRN ×2 (00:57→09:52)
[2021-10-06] MEDS: methylPREDNISolone Sod Succinate 125 MG/2 ML INJ IV SCH ×5 (00:58→23:26)
[2021-10-06] MEDS: IPRATROPIUM/ALBUTEROL SULFATE 3 ML AMPUL.NEB IH SCH ×6 (01:01→20:10)
--- NOTE | 2021-10-06 08:27 | Progress Note ---
Assessment and Plan Assessment and plan: #Status asthmaticusimproving Currently on BiPAP. Continue DuoNebs every 4 hours and albuterol nebs every 4 hours as needed Continue IV Solu-Medrol 60 mg every 6 hours, Singulair 10 mg daily Pending coronavirus PCR. Discontinuing Rocephin and azithromycin as there is low clinical suspicion for infection. Pulmonology consulted; appreciate recs. Continue NIV at night to give lungs a rest until bronchospasm has improved. Continue to monitor #Tobacco dependence #Tobacco/Smoking cessation counseling - Counseled patient about the importance of smoking cessation and the possible sequelae as a result of continued tobacco consumption. The patient expresses understanding. -Time: +15 mins #Elevated blood pressure Continue losartan 50 mg daily while inpatient. Likely secondary to high dose steroid administration. Continue to monitor. Critical Care Billing: The high probability of a clinically significant, sudden or life threatening deterioration of the [respiratory] system(s) required my full and direct attention, intervention and personal management. The aggregate critical care time was [60] minutes. This time is in addition to time spent performing reported procedures but includes the following: [x] Data Review and interpretation [x] Patient assessment and monitoring of vital signs [x] Documentation [x] Medication orders and management #Discharge planning - Patient is pending resolution of status asthmaticus and patient no longer requiring supplemental oxygen - Case management has been made aware. - Discharge is tentatively 4872 hours. Disposition Plan: Continue medical management Total Time Spent with Patient (Minutes): 45 minutes Hospitalist Physical - Constitutional Vitals: Temp Pulse Resp BP Pulse Ox 97.4 F L 87 14 132/89 100 10/06/21 03:44 10/06/21 04:17 10/06/21 04:17 10/06/21 03:44 10/06/21 04:17 General appearance: Present: no acute distress, well-nourished - EENT Eyes: Present: PERRL, EOM intact ENT: hearing intact, clear oral mucosa, dentition normal - Neck Neck: Present: supple, normal ROM - Respiratory Respiratory effort: normal Respiratory: bilateral: diminished - Cardiovascular Rhythm: regular Heart Sounds: Present: S1 & S2 - Extremities Extremities: no ischemia, pulses intact, pulses symmetrical, No edema, normal temperature, normal color, Full ROM Peripheral Pulses: within normal limits - Abdominal General gastrointestinal: soft, non-tender, non-distended, normal bowel sounds - Integumentary Integumentary: Present: clear, warm, dry - Psychiatric Psychiatric: appropriate mood/affect, intact judgment & insight, memory intact, cooperative - Neurologic Neurologic: CNII-XII intact, moves all extremities - Allied Health Allied health notes reviewed: nursing Results - Labs CBC & Chem 7: 10/05/21 05:06 10/05/21 05:06 Labs: Laboratory Last Values WBC 16.4 K/mm3 (4.5-11.0) H 10/05/21 05:06 RBC 5.17 M/mm3 (3.65-5.03) H 10/05/21 05:06 Hgb 15.2 gm/dl (11.8-15.2) 10/05/21 05:06 Hct 46.3 % (35.5-45.6) H D 10/05/21 05:06 MCV 89 fl (84-94) 10/05/21 05:06 MCH 29 pg (28-32) 10/05/21 05:06 MCHC 33 % (32-34) 10/05/21 05:06 RDW 14.8 % (13.2-15.2) 10/05/21 05:06 Plt Count 219 K/mm3 (140-440) 10/05/21 05:06 Lymph % (Auto) 7.0 % (13.4-35.0) L 10/03/21 21:08 Barber % (Auto) 3.9 % (0.0-7.3) 10/03/21 21:08 Eos % (Auto) 0.4 % (0.0-4.3) 10/03/21 21:08 Baso % (Auto) 0.6 % (0.0-1.8) 10/03/21 21:08 Lymph # (Auto) 1.3 K/mm3 (1.2-5.4) 10/03/21 21:08 Barber # (Auto) 0.7 K/mm3 (0.0-0.8) 10/03/21 21:08 Eos # (Auto) 0.1 K/mm3 (0.0-0.4) 10/03/21 21:08 Baso # (Auto) 0.1 K/mm3 (0.0-0.1) 10/03/21 21:08 Add Manual Diff Complete 10/05/21 05:06 Total Counted 100 10/05/21 05:06 Seg Neutrophils % Glove Maker 10/05/21 05:06 Seg Neuts % (Manual) 94.0 % (40.0-70.0) H 10/05/21 05:06 Band Neutrophils % 0 % 10/05/21 05:06 Lymphocytes % (Manual) 5.0 % (13.4-35.0) L 10/05/21 05:06 Reactive Lymphs % (Man) 0 % 10/05/21 05:06 Monocytes % (Manual) 1.0 % (0.0-7.3) 10/05/21 05:06 Eosinophils % (Manual) 0 % (0.0-4.3) 10/05/21 05:06 Basophils % (Manual) 0 % (0.0-1.8) 10/05/21 05:06 Metamyelocytes % 0 % 10/05/21 05:06 Myelocytes % 0 % 10/05/21 05:06 Promyelocytes % 0 % 10/05/21 05:06 Blast Cells % 0 % 10/05/21 05:06 Nucleated RBC % Not Reportable 10/05/21 05:06 Seg Neutrophils # 15.7 K/mm3 (1.8-7.7) H 10/03/21 21:08 Seg Neutrophils # Man 15.4 K/mm3 (1.8-7.7) H 10/05/21 05:06 Band Neutrophils # 0.0 K/mm3 10/05/21 05:06 Lymphocytes # (Manual) 0.8 K/mm3 (1.2-5.4) L 10/05/21 05:06 Abs React Lymphs (Man) 0.0 K/mm3 10/05/21 05:06 Monocytes # (Manual) 0.2 K/mm3 (0.0-0.8) 10/05/21 05:06 Eosinophils # (Manual) 0.0 K/mm3 (0.0-0.4) 10/05/21 05:06 Basophils # (Manual) 0.0 K/mm3 (0.0-0.1) 10/05/21 05:06 Metamyelocytes # 0.0 K/mm3 10/05/21 05:06 Myelocytes # 0.0 K/mm3 10/05/21 05:06 Promyelocytes # 0.0 K/mm3 10/05/21 05:06 Blast Cells # 0.0 K/mm3 10/05/21 05:06 WBC Morphology Not Reportable 10/05/21 05:06 Hypersegmented Neuts Not Reportable 10/05/21 05:06 Hyposegmented Neuts Not Reportable 10/05/21 05:06 Hypogranular Neuts Not Reportable 10/05/21 05:06 Smudge Cells Not Reportable 10/05/21 05:06 Toxic Granulation Not Reportable 10/05/21 05:06 Toxic Vacuolation Not Reportable 10/05/21 05:06 Dohle Bodies Not Reportable 10/05/21 05:06 Pelger-Huet Anomaly Not Reportable 10/05/21 05:06 Balaji Rods Not Reportable 10/05/21 05:06 Platelet Estimate Consistent w auto 10/05/21 05:06 Clumped Platelets Not Reportable 10/05/21 05:06 Plt Clumps, EDTA Not Reportable 10/05/21 05:06 Large Platelets Not Reportable 10/05/21 05:06 Giant Platelets Not Reportable 10/05/21 05:06 Platelet Satelliting Not Reportable 10/05/21 05:06 Plt Morphology Comment Not Reportable 10/05/21 05:06 RBC Morphology Normal 10/05/21 05:06 Dimorphic RBCs Not Reportable 10/05/21 05:06 Polychromasia Not Reportable 10/05/21 05:06 Hypochromasia Not Reportable 10/05/21 05:06 Poikilocytosis Not Reportable 10/05/21 05:06 Anisocytosis Not Reportable 10/05/21 05:06 Microcytosis Not Reportable 10/05/21 05:06 Macrocytosis Not Reportable 10/05/21 05:06 Spherocytes Not Reportable 10/05/21 05:06 Pappenheimer Bodies Not Reportable 10/05/21 05:06 Sickle Cells Not Reportable 10/05/21 05:06 Target Cells Not Reportable 10/05/21 05:06 Tear Drop Cells Not Reportable 10/05/21 05:06 Ovalocytes Not Reportable 10/05/21 05:06 Helmet Cells Not Reportable 10/05/21 05:06 Hartman-Ravena Bodies Not Reportable 10/05/21 05:06 Wales Rings Not Reportable 10/05/21 05:06 Winston Cells Not Reportable 10/05/21 05:06 Bite Cells Not Reportable 10/05/21 05:06 Crenated Cell Not Reportable 10/05/21 05:06 Elliptocytes Not Reportable 10/05/21 05:06 Acanthocytes (Spur) Not Reportable 10/05/21 05:06 Rouleaux Not Reportable 10/05/21 05:06 Hemoglobin C Crystals Not Reportable 10/05/21 05:06 Schistocytes Not Reportable 10/05/21 05:06 Malaria parasites Not Reportable 10/05/21 05:06 Wyatt Bodies Not Reportable 10/05/21 05:06 Hem Pathologist Commnt No 10/05/21 05:06 ABG pH 7.368 pH Units (7.350-7.450) 10/05/21 08:11 ABG pCO2 57.1 mm Hg 10/05/21 08:11 ABG pO2 70.7 mm Hg (80.0-90.0) L 10/05/21 08:11 ABG HCO3 32.2 mmol/L (20.0-26.0) H 10/05/21 08:11 ABG O2 Saturation 95.0 % (95.0-99.0) 10/05/21 08:11 ABG O2 Content 20.8 (0.0-44) 10/05/21 08:11 ABG Base Excess 5.0 mmol/L (-2.0-3.0) H 10/05/21 08:11 ABG Hemoglobin 15.9 gm/dl (14.0-18.0) 10/05/21 08:11 ABG Carboxyhemoglobin 1.1 % (0.0-5.0) 10/05/21 08:11 ABG Methemoglobin 0.5 % (0.0-1.5) 10/05/21 08:11 Oxyhemoglobin 93.5 % (95.0-99.0) L 10/05/21 08:11 FiO2 30 % 10/05/21 08:11 Sodium 141 mmol/L (137-145) 10/05/21 05:06 Potassium 4.3 mmol/L (3.6-5.0) D 10/05/21 05:06 Chloride 97.7 mmol/L (98-107) L 10/05/21 05:06 Carbon Dioxide 31 mmol/L (22-30) H D 10/05/21 05:06 Anion Gap 17 mmol/L 10/05/21 05:06 BUN 21 mg/dL (9-20) H 10/05/21 05:06 Creatinine 1.0 mg/dL (0.8-1.3) 10/05/21 05:06 Estimated GFR > 60 ml/min 10/05/21 05:06 BUN/Creatinine Ratio 21 % 10/05/21 05:06 Glucose 143 mg/dL (75-100) H 10/05/21 05:06 Calcium 9.6 mg/dL (8.4-10.2) 10/05/21 05:06 Coronavirus (PCR) Negative (Negative) 10/04/21 11:00 López/IV: Voiding Method Urinal Active Medications - Current Medications Current Medications: Generic Name Dose Route Start Last Admin Trade Name Freq PRN Reason Stop Dose Admin Acetaminophen 650 mg 10/03/21 23:02 Acetaminophen 325 Mg Tab PO Q4H PRN Pain MILD(1-3)/Fever >100.5/PRESTON Albuterol 2.5 mg 10/03/21 23:02 Albuterol 2.5 Mg/3 Ml Nebu IH Q3HRT PRN Shortness Of Breath Albuterol/Ipratropium 1 ampul 10/04/21 16:00 10/06/21 04:07 Ipratropium/Albuterol Sulfate 3 Ml Ampul.Neb IH 1 ampul Q4HRT JAIME Administration Budesonide 0.5 mg 10/04/21 08:00 10/05/21 20:24 Budesonide 0.5 Mg/2 Ml Nebu IH 0.5 mg Q12HRT JAIME Administration Chlorpromazine HCl 10 mg 10/05/21 06:44 Chlorpromazine 10 Mg Tab PO Q6H PRN Hiccups Famotidine 20 mg 10/04/21 10:00 10/05/21 21:12 Famotidine 20 Mg Tab PO 20 mg BID JAIME Administration Losartan Potassium 50 mg 10/05/21 10:00 10/05/21 12:06 Losartan 50 Mg Tab PO Not Given QDAY JAIME Methylprednisolone Sodium Succinate 60 mg 10/04/21 12:00 10/06/21 06:23 Methylprednisolone Sod Succinate 125 Mg/2 Ml Inj IV 60 mg Q6H JAIME Administration Montelukast Sodium 10 mg 10/04/21 22:00 10/05/21 21:12 Montelukast 10 Mg Tab PO 10 mg QHS JAIME Administration Morphine Sulfate 2 mg 10/03/21 23:02 Morphine 2 Mg/1 Ml Inj IV Q4H PRN Pain, Moderate (4-6) Morphine Sulfate 4 mg 10/03/21 23:02 Morphine 4 Mg/1 Ml Inj IV Q4H PRN Pain , Severe (7-10) Ondansetron HCl 4 mg 10/04/21 00:46 10/04/21 00:50 Ondansetron 4 Mg/2 Ml Inj IV 4 mg Q6H PRN Administration Nausea And Vomiting Pseudoephedrine/Acetam/Chlorphenir 15 ml 10/05/21 10:30 10/06/21 00:57 Guaifenesin/Codeine 100-10mg Oral Liqd 5 Ml PO 15 ml Q4H PRN Administration Cough Sodium Chloride 10 ml 10/04/21 10:00 10/05/21 21:12 Sodium Chloride 0.9% 10 Ml Flush Syringe IV 10 ml BID JAIME Administration Sodium Chloride 10 ml 10/03/21 23:02 Sodium Chloride 0.9% 10 Ml Flush Syringe IV PRN PRN LINE FLUSH
[2021-10-06] MEDS: BUDESONIDE 0.5 MG/2 ML NEBU IH SCH ×2 (08:48→20:10)
[2021-10-06] MEDS: FAMOTIDINE 20 MG TAB PO SCH ×2 (09:51→21:17)
[2021-10-06] MEDS: LOSARTAN 50 MG TAB PO SCH (09:51)
--- NOTE | 2021-10-06 11:53 | Progress Note ---
Assessment and Plan 36 y/o male with acute respiratory failure secondary to exacerbation of severe persistent asthma. 10/06/21: Continue high dose steroids. Bipap PRN and QHS. 10/05/21: Continue high dose steroids. Bipap must be worn at night and PRN dur ing the day. Given the amount of distress this am, will leave on continuous therapy for now. Discussed with charge nurse and rT today that NIV must be worn tonight and if any questions please call me as I am test inspection engineer [phone]. 1. Increase steroids to 60q6 2. Agree with BId pulmicort and scheduled duonebs 3. Restart singular 4. Will add GERD therapy BID 5. NIV at night to give lungs a rest until bronchospasm has improved Will continue to follow along with you. Thank you for this consult Subjective Date of service: 10/06/21 Interval history: Looks better this am. Wore the bipap last night. having some sputum produc tion, thick and white with green mixed in. Overall better. Objective Vital Signs - 12hr 10/06/21 10/06/21 10/06/21 01:01 01:04 03:44 Temperature 97.4 F L Pulse Rate 107 H 88 Pulse Rate [ 109 H Bilateral] Respiratory 22 18 Rate Respiratory 22 Rate [Bilateral ] Blood Pressure 132/89 O2 Sat by Pulse 97 98 Oximetry 10/06/21 10/06/21 10/06/21 04:07 04:17 07:19 Temperature Pulse Rate 87 90 Pulse Rate [ 87 Bilateral] Respiratory 14 20 Rate Respiratory 14 Rate [Bilateral ] Blood Pressure 126/88 O2 Sat by Pulse 100 97 Oximetry 10/06/21 10/06/21 10/06/21 08:45 09:03 09:23 Temperature Pulse Rate 100 H Pulse Rate [ 94 H Bilateral] Respiratory 17 Rate Respiratory 16 Rate [Bilateral ] Blood Pressure O2 Sat by Pulse 97 98 Oximetry Constitutional: appears uncomfortable, other (mild respiratory distress) Eyes: non-icteric, other (wearing corrective lens) ENT: oropharynx moist Neck: supple Effort: mildly labored Ascultation: Bilateral: wheezes Percussion: Bilateral: not dull Tactile fremitus: Bilateral: normal Cardiovascular: other (sinus tach) Gastrointestinal: normoactive bowel sounds, soft Integumentary: normal Extremities: no edema Neurologic: normal mental status, non-focal exam Psychiatric: mood appropriate CBC and BMP: 10/05/21 05:06 10/05/21 05:06 ABG, PT/INR, D-dimer: ABG ABG pH 7.368 pH Units (7.350-7.450) 10/05/21 08:11 ABG pCO2 57.1 mm Hg 10/05/21 08:11 ABG pO2 70.7 mm Hg (80.0-90.0) L 10/05/21 08:11 ABG O2 Saturation 95.0 % (95.0-99.0) 10/05/21 08:11 Abnormal lab findings: Abnormal Labs 10/03/21 10/03/21 10/04/21 21:08 21:08 04:48 WBC 17.8 H 12.4 H RBC 5.69 H 5.91 H Hgb 17.0 H 17.4 H Hct 51.0 H 53.9 H Lymph % (Auto) 7.0 L Seg Neutrophils % 88.1 H Seg Neuts % (Manual) 89.0 H Lymphocytes % (Manual) 8.0 L Seg Neutrophils # 15.7 H Seg Neutrophils # Man 11.0 H Lymphocytes # (Manual) 1.0 L ABG pO2 ABG HCO3 ABG Base Excess Oxyhemoglobin Sodium Potassium Chloride 97.0 L Carbon Dioxide BUN Glucose 122 H 10/04/21 10/05/21 10/05/21 04:48 05:06 05:06 WBC 16.4 H RBC 5.17 H Hgb Hct 46.3 H D Lymph % (Auto) Seg Neutrophils % Seg Neuts % (Manual) 94.0 H Lymphocytes % (Manual) 5.0 L Seg Neutrophils # Seg Neutrophils # Man 15.4 H Lymphocytes # (Manual) 0.8 L ABG pO2 ABG HCO3 ABG Base Excess Oxyhemoglobin Sodium 136 L Potassium 5.4 H D Chloride 95.8 L 97.7 L Carbon Dioxide 31 H D BUN 21 H Glucose 174 H 143 H 10/05/21 08:11 WBC RBC Hgb Hct Lymph % (Auto) Seg Neutrophils % Seg Neuts % (Manual) Lymphocytes % (Manual) Seg Neutrophils # Seg Neutrophils # Man Lymphocytes # (Manual) ABG pO2 70.7 L ABG HCO3 32.2 H ABG Base Excess 5.0 H Oxyhemoglobin 93.5 L Sodium Potassium Chloride Carbon Dioxide BUN Glucose
[2021-10-06] MEDS: MONTELUKAST 10 MG TAB PO SCH (21:17)
[2021-10-07] MEDS: IPRATROPIUM/ALBUTEROL SULFATE 3 ML AMPUL.NEB IH SCH ×6 (00:10→20:08)
[2021-10-07] MEDS: methylPREDNISolone Sod Succinate 125 MG/2 ML INJ IV SCH ×4 (05:27→23:35)
[2021-10-07] MEDS: BUDESONIDE 0.5 MG/2 ML NEBU IH SCH ×2 (09:11→20:08)
[2021-10-07] MEDS: LOSARTAN 50 MG TAB PO SCH (09:25)
[2021-10-07] MEDS: FAMOTIDINE 20 MG TAB PO SCH ×2 (09:25→21:30)
--- NOTE | 2021-10-07 13:44 | Progress Note ---
Assessment and Plan 36 y/o male with acute respiratory failure secondary to exacerbation of severe persistent asthma. 10/07/21: Same recs as previous. Will assess tomorrow if bipap can be stopped at night. Not ready to wean steroids yet. 10/06/21: Continue high dose steroids. Bipap PRN and QHS. 10/05/21: Continue high dose steroids. Bipap must be worn at night and PRN during the day. Given the amount of distress this am, will leave on continuous therapy for now. Discussed with charge nurse and rT today that NIV must be worn tonight and if any questions please call me as I am hot iron worker [phone]. 1. Increase steroids to 60q6 2. Agree with BId pulmicort and scheduled duonebs 3. Restart singular 4. Will add GERD therapy BID 5. NIV at night to give lungs a rest until bronchospasm has improved Will continue to follow along with you. Thank you for this consult Subjective Date of service: 10/07/21 Interval history: No acute events. Wore bipap last night. Good on 3 liters. Objective Vital Signs - 12hr 10/07/21 10/07/21 10/07/21 03:57 04:32 07:31 Temperature 97.4 F L Pulse Rate 76 90 Pulse Rate [ Bilateral] Respiratory 16 15 Rate Respiratory Rate [Bilateral ] Blood Pressure 114/89 O2 Sat by Pulse 99 97 98 Oximetry 10/07/21 10/07/21 09:12 09:14 Temperature Pulse Rate Pulse Rate [ 96 H Bilateral] Respiratory Rate Respiratory 18 Rate [Bilateral ] Blood Pressure O2 Sat by Pulse 96 Oximetry Constitutional: appears uncomfortable, other (mild respiratory distress) Eyes: non-icteric, other (wearing corrective lens) ENT: oropharynx moist Neck: supple Effort: mildly labored Ascultation: Bilateral: wheezes Percussion: Bilateral: not dull Tactile fremitus: Bilateral: normal Cardiovascular: other (sinus tach) Gastrointestinal: normoactive bowel sounds, soft Integumentary: normal Extremities: no edema Neurologic: normal mental status, non-focal exam Psychiatric: mood appropriate CBC and BMP: 10/05/21 05:06 10/05/21 05:06 ABG, PT/INR, D-dimer: ABG ABG pH 7.368 pH Units (7.350-7.450) 10/05/21 08:11 ABG pCO2 57.1 mm Hg 10/05/21 08:11 ABG pO2 70.7 mm Hg (80.0-90.0) L 10/05/21 08:11 ABG O2 Saturation 95.0 % (95.0-99.0) 10/05/21 08:11 Abnormal lab findings: Abnormal Labs 10/03/21 10/03/21 10/04/21 21:08 21:08 04:48 WBC 17.8 H 12.4 H RBC 5.69 H 5.91 H Hgb 17.0 H 17.4 H Hct 51.0 H 53.9 H Lymph % (Auto) 7.0 L Seg Neutrophils % 88.1 H Seg Neuts % (Manual) 89.0 H Lymphocytes % (Manual) 8.0 L Seg Neutrophils # 15.7 H Seg Neutrophils # Man 11.0 H Lymphocytes # (Manual) 1.0 L ABG pO2 ABG HCO3 ABG Base Excess Oxyhemoglobin Sodium Potassium Chloride 97.0 L Carbon Dioxide BUN Glucose 122 H 10/04/21 10/05/21 10/05/21 04:48 05:06 05:06 WBC 16.4 H RBC 5.17 H Hgb Hct 46.3 H D Lymph % (Auto) Seg Neutrophils % Seg Neuts % (Manual) 94.0 H Lymphocytes % (Manual) 5.0 L Seg Neutrophils # Seg Neutrophils # Man 15.4 H Lymphocytes # (Manual) 0.8 L ABG pO2 ABG HCO3 ABG Base Excess Oxyhemoglobin Sodium 136 L Potassium 5.4 H D Chloride 95.8 L 97.7 L Carbon Dioxide 31 H D BUN 21 H Glucose 174 H 143 H 10/05/21 08:11 WBC RBC Hgb Hct Lymph % (Auto) Seg Neutrophils % Seg Neuts % (Manual) Lymphocytes % (Manual) Seg Neutrophils # Seg Neutrophils # Man Lymphocytes # (Manual) ABG pO2 70.7 L ABG HCO3 32.2 H ABG Base Excess 5.0 H Oxyhemoglobin 93.5 L Sodium Potassium Chloride Carbon Dioxide BUN Glucose
--- NOTE | 2021-10-07 16:43 | Progress Note ---
Assessment and Plan Assessment and plan: #Status asthmaticusimproving Currently on 2L nasal cannula. Continue DuoNebs every 4 hours and albuterol nebs every 4 hours as needed Continue IV Solu-Medrol 60 mg every 6 hours, Singulair 10 mg daily Pending coronavirus PCR. Discontinuing Rocephin and azithromycin as there is low clinical suspicion for infection. Pulmonology consulted; appreciate recs. Continue NIV at night to give lungs a rest until bronchospasm has improved. Continue to monitor #Tobacco dependence #Tobacco/Smoking cessation counseling - Counseled patient about the importance of smoking cessation and the possible sequelae as a result of continued tobacco consumption. The patient expresses understanding. -Time: +15 mins #Elevated blood pressure Continue losartan 50 mg daily while inpatient. Likely secondary to high dose steroid administration. Continue to monitor. #Advanced care planning -Disease education conducted, care plan discussed, diagnoses discussed, prognosis discussed, and patient acknowledges understanding with care plan -Time: +30 min. #Discharge planning - Patient is pending resolution of status asthmaticus and patient no longer req uiring supplemental oxygen - Case management has been made aware. - Discharge is tentatively 4872 hours. Disposition Plan: Continue medical management Total Time Spent with Patient (Minutes): 45 min History Interval history: No acute events overnight. Hospitalist Physical - Constitutional Vitals: Temp Pulse Resp BP Pulse Ox 97.4 F L 112 H 20 114/89 96 10/07/21 03:57 10/07/21 15:07 10/07/21 15:07 10/07/21 03:57 10/07/21 09:14 General appearance: Present: no acute distress, well-nourished - EENT Eyes: Present: PERRL, EOM intact ENT: hearing intact, clear oral mucosa, dentition normal - Neck Neck: Present: supple, normal ROM - Respiratory Respiratory effort: normal Respiratory: bilateral: wheezing - Cardiovascular Heart rate: 110 Rhythm: regular Heart Sounds: Present: S1 & S2 - Extremities Extremities: no ischemia, pulses intact, pulses symmetrical, No edema, normal temperature, normal color, Full ROM Peripheral Pulses: within normal limits - Abdominal General gastrointestinal: soft, non-tender, non-distended, normal bowel sounds - Integumentary Integumentary: Present: clear, warm, dry - Psychiatric Psychiatric: appropriate mood/affect, intact judgment & insight, memory intact, cooperative - Neurologic Neurologic: CNII-XII intact, moves all extremities - Allied Health Allied health notes reviewed: nursing Results - Labs CBC & Chem 7: 10/05/21 05:06 10/05/21 05:06 Labs: Laboratory Last Values WBC 16.4 K/mm3 (4.5-11.0) H 10/05/21 05:06 RBC 5.17 M/mm3 (3.65-5.03) H 10/05/21 05:06 Hgb 15.2 gm/dl (11.8-15.2) 10/05/21 05:06 Hct 46.3 % (35.5-45.6) H D 10/05/21 05:06 MCV 89 fl (84-94) 10/05/21 05:06 MCH 29 pg (28-32) 10/05/21 05:06 MCHC 33 % (32-34) 10/05/21 05:06 RDW 14.8 % (13.2-15.2) 10/05/21 05:06 Plt Count 219 K/mm3 (140-440) 10/05/21 05:06 Lymph % (Auto) 7.0 % (13.4-35.0) L 10/03/21 21:08 [place] % (Auto) 3.9 % (0.0-7.3) 10/03/21 21:08 Eos % (Auto) 0.4 % (0.0-4.3) 10/03/21 21:08 Baso % (Auto) 0.6 % (0.0-1.8) 10/03/21 21:08 Lymph # (Auto) 1.3 K/mm3 (1.2-5.4) 10/03/21 21:08 [place] # (Auto) 0.7 K/mm3 (0.0-0.8) 10/03/21 21:08 Eos # (Auto) 0.1 K/mm3 (0.0-0.4) 10/03/21 21:08 Baso # (Auto) 0.1 K/mm3 (0.0-0.1) 10/03/21 21:08 Add Manual Diff Complete 10/05/21 05:06 Total Counted 100 10/05/21 05:06 Seg Neutrophils % Rn Ccu 10/05/21 05:06 Seg Neuts % (Manual) 94.0 % (40.0-70.0) H 10/05/21 05:06 Band Neutrophils % 0 % 10/05/21 05:06 Lymphocytes % (Manual) 5.0 % (13.4-35.0) L 10/05/21 05:06 Reactive Lymphs % (Man) 0 % 10/05/21 05:06 Monocytes % (Manual) 1.0 % (0.0-7.3) 10/05/21 05:06 Eosinophils % (Manual) 0 % (0.0-4.3) 10/05/21 05:06 Basophils % (Manual) 0 % (0.0-1.8) 10/05/21 05:06 Metamyelocytes % 0 % 10/05/21 05:06 Myelocytes % 0 % 10/05/21 05:06 Promyelocytes % 0 % 10/05/21 05:06 Blast Cells % 0 % 10/05/21 05:06 Nucleated RBC % Not Reportable 10/05/21 05:06 Seg Neutrophils # 15.7 K/mm3 (1.8-7.7) H 10/03/21 21:08 Seg Neutrophils # Man 15.4 K/mm3 (1.8-7.7) H 10/05/21 05:06 Band Neutrophils # 0.0 K/mm3 10/05/21 05:06 Lymphocytes # (Manual) 0.8 K/mm3 (1.2-5.4) L 10/05/21 05:06 Abs React Lymphs (Man) 0.0 K/mm3 10/05/21 05:06 Monocytes # (Manual) 0.2 K/mm3 (0.0-0.8) 10/05/21 05:06 Eosinophils # (Manual) 0.0 K/mm3 (0.0-0.4) 10/05/21 05:06 Basophils # (Manual) 0.0 K/mm3 (0.0-0.1) 10/05/21 05:06 Metamyelocytes # 0.0 K/mm3 10/05/21 05:06 Myelocytes # 0.0 K/mm3 10/05/21 05:06 Promyelocytes # 0.0 K/mm3 10/05/21 05:06 Blast Cells # 0.0 K/mm3 10/05/21 05:06 WBC Morphology Not Reportable 10/05/21 05:06 Hypersegmented Neuts Not Reportable 10/05/21 05:06 Hyposegmented Neuts Not Reportable 10/05/21 05:06 Hypogranular Neuts Not Reportable 10/05/21 05:06 Smudge Cells Not Reportable 10/05/21 05:06 Toxic Granulation Not Reportable 10/05/21 05:06 Toxic Vacuolation Not Reportable 10/05/21 05:06 Dohle Bodies Not Reportable 10/05/21 05:06 Pelger-Huet Anomaly Not Reportable 10/05/21 05:06 Balaji Rods Not Reportable 10/05/21 05:06 Platelet Estimate Consistent w auto 10/05/21 05:06 Clumped Platelets Not Reportable 10/05/21 05:06 Plt Clumps, EDTA Not Reportable 10/05/21 05:06 Large Platelets Not Reportable 10/05/21 05:06 Giant Platelets Not Reportable 10/05/21 05:06 Platelet Satelliting Not Reportable 10/05/21 05:06 Plt Morphology Comment Not Reportable 10/05/21 05:06 RBC Morphology Normal 10/05/21 05:06 Dimorphic RBCs Not Reportable 10/05/21 05:06 Polychromasia Not Reportable 10/05/21 05:06 Hypochromasia Not Reportable 10/05/21 05:06 Poikilocytosis Not Reportable 10/05/21 05:06 Anisocytosis Not Reportable 10/05/21 05:06 Microcytosis Not Reportable 10/05/21 05:06 Macrocytosis Not Reportable 10/05/21 05:06 Spherocytes Not Reportable 10/05/21 05:06 Pappenheimer Bodies Not Reportable 10/05/21 05:06 Sickle Cells Not Reportable 10/05/21 05:06 Target Cells Not Reportable 10/05/21 05:06 Tear Drop Cells Not Reportable 10/05/21 05:06 Ovalocytes Not Reportable 10/05/21 05:06 Helmet Cells Not Reportable 10/05/21 05:06 Hartman-Woodall Bodies Not Reportable 10/05/21 05:06 [place] Rings Not Reportable 10/05/21 05:06 Printer Cells Not Reportable 10/05/21 05:06 Bite Cells Not Reportable 10/05/21 05:06 Crenated Cell Not Reportable 10/05/21 05:06 Elliptocytes Not Reportable 10/05/21 05:06 Acanthocytes (Spur) Not Reportable 10/05/21 05:06 Rouleaux Not Reportable 10/05/21 05:06 Hemoglobin C Crystals Not Reportable 10/05/21 05:06 Schistocytes Not Reportable 10/05/21 05:06 Malaria parasites Not Reportable 10/05/21 05:06 Wyatt Bodies Not Reportable 10/05/21 05:06 Hem Pathologist Commnt No 10/05/21 05:06 ABG pH 7.368 pH Units (7.350-7.450) 10/05/21 08:11 ABG pCO2 57.1 mm Hg 10/05/21 08:11 ABG pO2 70.7 mm Hg (80.0-90.0) L 10/05/21 08:11 ABG HCO3 32.2 mmol/L (20.0-26.0) H 10/05/21 08:11 ABG O2 Saturation 95.0 % (95.0-99.0) 10/05/21 08:11 ABG O2 Content 20.8 (0.0-44) 10/05/21 08:11 ABG Base Excess 5.0 mmol/L (-2.0-3.0) H 10/05/21 08:11 ABG Hemoglobin 15.9 gm/dl (14.0-18.0) 10/05/21 08:11 ABG Carboxyhemoglobin 1.1 % (0.0-5.0) 10/05/21 08:11 ABG Methemoglobin 0.5 % (0.0-1.5) 10/05/21 08:11 Oxyhemoglobin 93.5 % (95.0-99.0) L 10/05/21 08:11 FiO2 30 % 10/05/21 08:11 Sodium 141 mmol/L (137-145) 10/05/21 05:06 Potassium 4.3 mmol/L (3.6-5.0) D 10/05/21 05:06 Chloride 97.7 mmol/L (98-107) L 10/05/21 05:06 Carbon Dioxide 31 mmol/L (22-30) H D 10/05/21 05:06 Anion Gap 17 mmol/L 10/05/21 05:06 BUN 21 mg/dL (9-20) H 10/05/21 05:06 Creatinine 1.0 mg/dL (0.8-1.3) 10/05/21 05:06 Estimated GFR > 60 ml/min 10/05/21 05:06 BUN/Creatinine Ratio 21 % 10/05/21 05:06 Glucose 143 mg/dL (75-100) H 10/05/21 05:06 Calcium 9.6 mg/dL (8.4-10.2) 10/05/21 05:06 Coronavirus (PCR) Negative (Negative) 10/04/21 11:00 López/IV: Voiding Method Urinal Active Medications - Current Medications Current Medications: Generic Name Dose Route Start Last Admin Trade Name Freq PRN Reason Stop Dose Admin Acetaminophen 650 mg 10/03/21 23:02 Acetaminophen 325 Mg Tab PO Q4H PRN Pain MILD(1-3)/Fever >100.5/PRESTON Albuterol 2.5 mg 10/03/21 23:02 Albuterol 2.5 Mg/3 Ml Nebu IH Q3HRT PRN Shortness Of Breath Albuterol/Ipratropium 1 ampul 10/04/21 16:00 10/07/21 15:07 Ipratropium/Albuterol Sulfate 3 Ml Ampul.Neb IH 1 ampul Q4HRT JAIME Administration Budesonide 0.5 mg 10/04/21 08:00 10/07/21 09:11 Budesonide 0.5 Mg/2 Ml Nebu IH 0.5 mg Q12HRT JAIME Administration Chlorpromazine HCl 10 mg 10/05/21 06:44 10/06/21 17:13 Chlorpromazine 10 Mg Tab PO 10 mg Q6H PRN Administration Hiccups Famotidine 20 mg 10/04/21 10:00 10/07/21 09:25 Famotidine 20 Mg Tab PO 20 mg BID JAIME Administration Losartan Potassium 50 mg 10/05/21 10:00 10/07/21 09:25 Losartan 50 Mg Tab PO 50 mg QDAY JAIME Administration Methylprednisolone Sodium Succinate 60 mg 10/04/21 12:00 10/07/21 12:31 Methylprednisolone Sod Succinate 125 Mg/2 Ml Inj IV 60 mg Q6H JAIME Administration Montelukast Sodium 10 mg 10/04/21 22:00 10/06/21 21:17 Montelukast 10 Mg Tab PO 10 mg QHS JAIME Administration Morphine Sulfate 2 mg 10/03/21 23:02 Morphine 2 Mg/1 Ml Inj IV Q4H PRN Pain, Moderate (4-6) Morphine Sulfate 4 mg 10/03/21 23:02 Morphine 4 Mg/1 Ml Inj IV Q4H PRN Pain , Severe (7-10) Ondansetron HCl 4 mg 10/04/21 00:46 10/04/21 00:50 Ondansetron 4 Mg/2 Ml Inj IV 4 mg Q6H PRN Administration Nausea And Vomiting Pseudoephedrine/Acetam/Chlorphenir 15 ml 10/05/21 10:30 10/06/21 09:52 Guaifenesin/Codeine 100-10mg Oral Liqd 5 Ml PO 15 ml Q4H PRN Administration Cough Sodium Chloride 10 ml 10/04/21 10:00 10/07/21 09:25 Sodium Chloride 0.9% 10 Ml Flush Syringe IV 10 ml BID JAIME Administration Sodium Chloride 10 ml 10/03/21 23:02 Sodium Chloride 0.9% 10 Ml Flush Syringe IV PRN PRN LINE FLUSH
[2021-10-07] MEDS: MONTELUKAST 10 MG TAB PO SCH (21:30)
[2021-10-08] MEDS: IPRATROPIUM/ALBUTEROL SULFATE 3 ML AMPUL.NEB IH SCH ×5 (00:31→22:13)
[2021-10-08] MEDS: methylPREDNISolone Sod Succinate 125 MG/2 ML INJ IV SCH ×3 (06:15→19:16)
[2021-10-08] MEDS: BUDESONIDE 0.5 MG/2 ML NEBU IH SCH ×2 (08:43→22:13)
--- NOTE | 2021-10-08 10:03 | Progress Note ---
Assessment and Plan 36 y/o male with acute respiratory failure secondary to exacerbation of severe persistent asthma. 10/08/21: Bipap can be made PRN. Continue high dose steroids. I walked patient on remote telebox. Did drop to 85 transiently but this was literally after we had stopped walking. Will ask RT to walk with our continuous pulse ox to assess oxygen needs. Likely discharge tomorrow and not today. Will need prolonged steroid taper as follows: 60 daily for 4 days, 40 daily for 4 days then 20 daily for 4 days then 10 daily for 4 days then stop. Ok to resume home asthma regimen at discharge. 10/07/21: Same recs as previous. Will assess tomorrow if bipap can be stopped at night. Not ready to wean steroids yet. 10/06/21: Continue high dose steroids. Bipap PRN and QHS. 10/05/21: Continue high dose steroids. Bipap must be worn at night and PRN during the day. Given the amount of distress this am, will leave on continuous therapy for now. Discussed with charge nurse and rT today that NIV must be worn tonight and if any questions please call me as I am simonizer [phone]. 1. Increase steroids to 60q6 2. Agree with BId pulmicort and scheduled duonebs 3. Restart singular 4. Will add GERD therapy BID 5. NIV at night to give lungs a rest until bronchospasm has improved Will continue to follow along with you. Thank you for this consult Subjective Date of service: 10/08/21 Interval history: Looks and feels better today. Breathing not nearly as labored. Did not wear bipap last night, no distress this am. Objective Vital Signs - 12hr 10/08/21 10/08/21 10/08/21 00:06 04:12 04:18 Temperature 98.8 F 98.3 F Pulse Rate 111 H 91 H Pulse Rate [ 98 H Bilateral] Respiratory 18 18 Rate Respiratory 20 Rate [Bilateral ] Blood Pressure 125/81 118/89 O2 Sat by Pulse 94 93 Oximetry 10/08/21 10/08/21 08:42 08:43 Temperature Pulse Rate Pulse Rate [ 113 H Bilateral] Respiratory Rate Respiratory 20 Rate [Bilateral ] Blood Pressure O2 Sat by Pulse 90 Oximetry Constitutional: appears uncomfortable, other (mild respiratory distress) Eyes: non-icteric, other (wearing corrective lens) ENT: oropharynx moist Neck: supple Effort: mildly labored Ascultation: Bilateral: wheezes Percussion: Bilateral: not dull Tactile fremitus: Bilateral: normal Cardiovascular: other (sinus tach) Gastrointestinal: normoactive bowel sounds, soft Integumentary: normal Extremities: no edema Neurologic: normal mental status, non-focal exam Psychiatric: mood appropriate CBC and BMP: 10/05/21 05:06 10/05/21 05:06 ABG, PT/INR, D-dimer: ABG ABG pH 7.368 pH Units (7.350-7.450) 10/05/21 08:11 ABG pCO2 57.1 mm Hg 10/05/21 08:11 ABG pO2 70.7 mm Hg (80.0-90.0) L 10/05/21 08:11 ABG O2 Saturation 95.0 % (95.0-99.0) 10/05/21 08:11 Abnormal lab findings: Abnormal Labs 10/03/21 10/03/21 10/04/21 21:08 21:08 04:48 WBC 17.8 H 12.4 H RBC 5.69 H 5.91 H Hgb 17.0 H 17.4 H Hct 51.0 H 53.9 H Lymph % (Auto) 7.0 L Seg Neutrophils % 88.1 H Seg Neuts % (Manual) 89.0 H Lymphocytes % (Manual) 8.0 L Seg Neutrophils # 15.7 H Seg Neutrophils # Man 11.0 H Lymphocytes # (Manual) 1.0 L ABG pO2 ABG HCO3 ABG Base Excess Oxyhemoglobin Sodium Potassium Chloride 97.0 L Carbon Dioxide BUN Glucose 122 H 10/04/21 10/05/21 10/05/21 04:48 05:06 05:06 WBC 16.4 H RBC 5.17 H Hgb Hct 46.3 H D Lymph % (Auto) Seg Neutrophils % Seg Neuts % (Manual) 94.0 H Lymphocytes % (Manual) 5.0 L Seg Neutrophils # Seg Neutrophils # Man 15.4 H Lymphocytes # (Manual) 0.8 L ABG pO2 ABG HCO3 ABG Base Excess Oxyhemoglobin Sodium 136 L Potassium 5.4 H D Chloride 95.8 L 97.7 L Carbon Dioxide 31 H D BUN 21 H Glucose 174 H 143 H 10/05/21 08:11 WBC RBC Hgb Hct Lymph % (Auto) Seg Neutrophils % Seg Neuts % (Manual) Lymphocytes % (Manual) Seg Neutrophils # Seg Neutrophils # Man Lymphocytes # (Manual) ABG pO2 70.7 L ABG HCO3 32.2 H ABG Base Excess 5.0 H Oxyhemoglobin 93.5 L Sodium Potassium Chloride Carbon Dioxide BUN Glucose
[2021-10-08] MEDS: LOSARTAN 50 MG TAB PO SCH (10:11)
[2021-10-08] MEDS: FAMOTIDINE 20 MG TAB PO SCH ×2 (10:12→22:05)
--- NOTE | 2021-10-08 11:26 | Progress Note ---
Assessment and Plan Assessment and plan: #Status asthmaticusimproving Currently on 2L nasal cannula. Continue DuoNebs every 4 hours and albuterol nebs every 4 hours as needed Continue IV Solu-Medrol 60 mg every 6 hours, Singulair 10 mg daily Unremarkable coronavirus PCR. Discontinuing Rocephin and azithromycin as there is low clinical suspicion for infection. Pulmonology consulted; appreciate recs. NIV can be worn at night as needed. Steroid taper: 60 mg daily for 4 days, 40 mg daily for 4 days, 20 mg daily for 4 days, then 10 mg daily for 4 days. Continue to monitor #Tobacco dependence #Tobacco/Smoking cessation counseling - Counseled patient about the importance of smoking cessation and the possible sequelae as a result of continued tobacco consumption. The patient expresses understanding. -Time: +15 mins #Elevated blood pressure Continue losartan 50 mg daily while inpatient. Likely secondary to high dose steroid administration. Will not be continued upon discharge. #Advanced care planning -Disease education conducted, care plan discussed, diagnoses discussed, prognosis discussed, and patient acknowledges understanding with care plan -Time: +30 min. #Discharge planning - Patient is pending resolution of status asthmaticus and patient no longer requiring supplemental oxygen - Case management has been made aware. - Discharge is tentatively tomorrow. Disposition Plan: Pending possible discharge home tomorrow Total Time Spent with Patient (Minutes): 45 minutes History Interval history: No acute events overnight. Hospitalist Physical - Constitutional Vitals: Temp Pulse Resp BP Pulse Ox 98.3 F 105 H 20 118/89 92 10/08/21 04:12 10/08/21 10:00 10/08/21 08:43 10/08/21 04:12 10/08/21 10:00 General appearance: Present: no acute distress, well-nourished - EENT Eyes: Present: PERRL, EOM intact ENT: hearing intact, clear oral mucosa, dentition normal - Neck Neck: Present: supple, normal ROM - Respiratory Respiratory effort: normal Respiratory: bilateral: diminished (2 L nasal cannula) - Cardiovascular Heart rate: 120 Rhythm: regular Heart Sounds: Present: S1 & S2 - Extremities Extremities: no ischemia, pulses intact, pulses symmetrical, No edema, normal temperature, normal color, Full ROM Peripheral Pulses: within normal limits - Abdominal General gastrointestinal: soft, non-tender, non-distended, normal bowel sounds - Integumentary Integumentary: Present: clear, warm, dry - Psychiatric Psychiatric: appropriate mood/affect, intact judgment & insight, memory intact, cooperative - Neurologic Neurologic: CNII-XII intact, moves all extremities - Allied Health Allied health notes reviewed: nursing Results - Labs CBC & Chem 7: 10/05/21 05:06 10/05/21 05:06 Labs: Laboratory Last Values WBC 16.4 K/mm3 (4.5-11.0) H 10/05/21 05:06 RBC 5.17 M/mm3 (3.65-5.03) H 10/05/21 05:06 Hgb 15.2 gm/dl (11.8-15.2) 10/05/21 05:06 Hct 46.3 % (35.5-45.6) H D 10/05/21 05:06 MCV 89 fl (84-94) 10/05/21 05:06 MCH 29 pg (28-32) 10/05/21 05:06 MCHC 33 % (32-34) 10/05/21 05:06 RDW 14.8 % (13.2-15.2) 10/05/21 05:06 Plt Count 219 K/mm3 (140-440) 10/05/21 05:06 Lymph % (Auto) 7.0 % (13.4-35.0) L 10/03/21 21:08 [place] % (Auto) 3.9 % (0.0-7.3) 10/03/21 21:08 Eos % (Auto) 0.4 % (0.0-4.3) 10/03/21 21:08 Baso % (Auto) 0.6 % (0.0-1.8) 10/03/21 21:08 Lymph # (Auto) 1.3 K/mm3 (1.2-5.4) 10/03/21 21:08 [place] # (Auto) 0.7 K/mm3 (0.0-0.8) 10/03/21 21:08 Eos # (Auto) 0.1 K/mm3 (0.0-0.4) 10/03/21 21:08 Baso # (Auto) 0.1 K/mm3 (0.0-0.1) 10/03/21 21:08 Add Manual Diff Complete 10/05/21 05:06 Total Counted 100 10/05/21 05:06 Seg Neutrophils % Reject Opener And Filler 10/05/21 05:06 Seg Neuts % (Manual) 94.0 % (40.0-70.0) H 10/05/21 05:06 Band Neutrophils % 0 % 10/05/21 05:06 Lymphocytes % (Manual) 5.0 % (13.4-35.0) L 10/05/21 05:06 Reactive Lymphs % (Man) 0 % 10/05/21 05:06 Monocytes % (Manual) 1.0 % (0.0-7.3) 10/05/21 05:06 Eosinophils % (Manual) 0 % (0.0-4.3) 10/05/21 05:06 Basophils % (Manual) 0 % (0.0-1.8) 10/05/21 05:06 Metamyelocytes % 0 % 10/05/21 05:06 Myelocytes % 0 % 10/05/21 05:06 Promyelocytes % 0 % 10/05/21 05:06 Blast Cells % 0 % 10/05/21 05:06 Nucleated RBC % Not Reportable 10/05/21 05:06 Seg Neutrophils # 15.7 K/mm3 (1.8-7.7) H 10/03/21 21:08 Seg Neutrophils # Man 15.4 K/mm3 (1.8-7.7) H 10/05/21 05:06 Band Neutrophils # 0.0 K/mm3 10/05/21 05:06 Lymphocytes # (Manual) 0.8 K/mm3 (1.2-5.4) L 10/05/21 05:06 Abs React Lymphs (Man) 0.0 K/mm3 10/05/21 05:06 Monocytes # (Manual) 0.2 K/mm3 (0.0-0.8) 10/05/21 05:06 Eosinophils # (Manual) 0.0 K/mm3 (0.0-0.4) 10/05/21 05:06 Basophils # (Manual) 0.0 K/mm3 (0.0-0.1) 10/05/21 05:06 Metamyelocytes # 0.0 K/mm3 10/05/21 05:06 Myelocytes # 0.0 K/mm3 10/05/21 05:06 Promyelocytes # 0.0 K/mm3 10/05/21 05:06 Blast Cells # 0.0 K/mm3 10/05/21 05:06 WBC Morphology Not Reportable 10/05/21 05:06 Hypersegmented Neuts Not Reportable 10/05/21 05:06 Hyposegmented Neuts Not Reportable 10/05/21 05:06 Hypogranular Neuts Not Reportable 10/05/21 05:06 Smudge Cells Not Reportable 10/05/21 05:06 Toxic Granulation Not Reportable 10/05/21 05:06 Toxic Vacuolation Not Reportable 10/05/21 05:06 Dohle Bodies Not Reportable 10/05/21 05:06 Pelger-Huet Anomaly Not Reportable 10/05/21 05:06 Balaji Rods Not Reportable 10/05/21 05:06 Platelet Estimate Consistent w auto 10/05/21 05:06 Clumped Platelets Not Reportable 10/05/21 05:06 Plt Clumps, EDTA Not Reportable 10/05/21 05:06 Large Platelets Not Reportable 10/05/21 05:06 Giant Platelets Not Reportable 10/05/21 05:06 Platelet Satelliting Not Reportable 10/05/21 05:06 Plt Morphology Comment Not Reportable 10/05/21 05:06 RBC Morphology Normal 10/05/21 05:06 Dimorphic RBCs Not Reportable 10/05/21 05:06 Polychromasia Not Reportable 10/05/21 05:06 Hypochromasia Not Reportable 10/05/21 05:06 Poikilocytosis Not Reportable 10/05/21 05:06 Anisocytosis Not Reportable 10/05/21 05:06 Microcytosis Not Reportable 10/05/21 05:06 Macrocytosis Not Reportable 10/05/21 05:06 Spherocytes Not Reportable 10/05/21 05:06 Pappenheimer Bodies Not Reportable 10/05/21 05:06 Sickle Cells Not Reportable 10/05/21 05:06 Target Cells Not Reportable 10/05/21 05:06 Tear Drop Cells Not Reportable 10/05/21 05:06 Ovalocytes Not Reportable 10/05/21 05:06 Helmet Cells Not Reportable 10/05/21 05:06 Hartman-Glenvar Bodies Not Reportable 10/05/21 05:06 [place] Rings Not Reportable 10/05/21 05:06 [place] Cells Not Reportable 10/05/21 05:06 Bite Cells Not Reportable 10/05/21 05:06 Crenated Cell Not Reportable 10/05/21 05:06 Elliptocytes Not Reportable 10/05/21 05:06 Acanthocytes (Spur) Not Reportable 10/05/21 05:06 Rouleaux Not Reportable 10/05/21 05:06 Hemoglobin C Crystals Not Reportable 10/05/21 05:06 Schistocytes Not Reportable 10/05/21 05:06 Malaria parasites Not Reportable 10/05/21 05:06 Wyatt Bodies Not Reportable 10/05/21 05:06 Hem Pathologist Commnt No 10/05/21 05:06 ABG pH 7.368 pH Units (7.350-7.450) 10/05/21 08:11 ABG pCO2 57.1 mm Hg 10/05/21 08:11 ABG pO2 70.7 mm Hg (80.0-90.0) L 10/05/21 08:11 ABG HCO3 32.2 mmol/L (20.0-26.0) H 10/05/21 08:11 ABG O2 Saturation 95.0 % (95.0-99.0) 10/05/21 08:11 ABG O2 Content 20.8 (0.0-44) 10/05/21 08:11 ABG Base Excess 5.0 mmol/L (-2.0-3.0) H 10/05/21 08:11 ABG Hemoglobin 15.9 gm/dl (14.0-18.0) 10/05/21 08:11 ABG Carboxyhemoglobin 1.1 % (0.0-5.0) 10/05/21 08:11 ABG Methemoglobin 0.5 % (0.0-1.5) 10/05/21 08:11 Oxyhemoglobin 93.5 % (95.0-99.0) L 10/05/21 08:11 FiO2 30 % 10/05/21 08:11 Sodium 141 mmol/L (137-145) 10/05/21 05:06 Potassium 4.3 mmol/L (3.6-5.0) D 10/05/21 05:06 Chloride 97.7 mmol/L (98-107) L 10/05/21 05:06 Carbon Dioxide 31 mmol/L (22-30) H D 10/05/21 05:06 Anion Gap 17 mmol/L 10/05/21 05:06 BUN 21 mg/dL (9-20) H 10/05/21 05:06 Creatinine 1.0 mg/dL (0.8-1.3) 10/05/21 05:06 Estimated GFR > 60 ml/min 10/05/21 05:06 BUN/Creatinine Ratio 21 % 10/05/21 05:06 Glucose 143 mg/dL (75-100) H 10/05/21 05:06 Calcium 9.6 mg/dL (8.4-10.2) 10/05/21 05:06 Coronavirus (PCR) Negative (Negative) 10/04/21 11:00 Lópze/IV: Voiding Method Toilet Active Medications - Current Medications Current Medications: Generic Name Dose Route Start Last Admin Trade Name Freq PRN Reason Stop Dose Admin Acetaminophen 650 mg 10/03/21 23:02 Acetaminophen 325 Mg Tab PO Q4H PRN Pain MILD(1-3)/Fever >100.5/PRESTON Albuterol 2.5 mg 10/03/21 23:02 Albuterol 2.5 Mg/3 Ml Nebu IH Q3HRT PRN Shortness Of Breath Albuterol/Ipratropium 1 ampul 10/08/21 14:00 Ipratropium/Albuterol Sulfate 3 Ml Ampul.Neb IH Q6HRT JAIME Budesonide 0.5 mg 10/04/21 08:00 10/08/21 08:43 Budesonide 0.5 Mg/2 Ml Nebu IH 0.5 mg Q12HRT JAIME Administration Chlorpromazine HCl 10 mg 10/05/21 06:44 10/06/21 17:13 Chlorpromazine 10 Mg Tab PO 10 mg Q6H PRN Administration Hiccups Famotidine 20 mg 10/04/21 10:00 10/08/21 10:12 Famotidine 20 Mg Tab PO 20 mg BID JAIME Administration Losartan Potassium 50 mg 10/05/21 10:00 10/08/21 10:11 Losartan 50 Mg Tab PO 50 mg QDAY JAIME Administration Methylprednisolone Sodium Succinate 60 mg 10/04/21 12:00 07/18/22 06:15 Methylprednisolone Sod Succinate 125 Mg/2 Ml Inj IV 60 mg Q6H JAIME Administration Montelukast Sodium 10 mg 10/04/21 22:00 10/07/21 21:30 Montelukast 10 Mg Tab PO 10 mg QHS JAIME Administration Morphine Sulfate 2 mg 10/03/21 23:02 Morphine 2 Mg/1 Ml Inj IV Q4H PRN Pain, Moderate (4-6) Morphine Sulfate 4 mg 10/03/21 23:02 Morphine 4 Mg/1 Ml Inj IV Q4H PRN Pain , Severe (7-10) Ondansetron HCl 4 mg 10/04/21 00:46 10/04/21 00:50 Ondansetron 4 Mg/2 Ml Inj IV 4 mg Q6H PRN Administration Nausea And Vomiting Pseudoephedrine/Acetam/Chlorphenir 15 ml 10/05/21 10:30 10/06/21 09:52 Guaifenesin/Codeine 100-10mg Oral Liqd 5 Ml PO 15 ml Q4H PRN Administration Cough Sodium Chloride 10 ml 10/04/21 10:00 10/08/21 10:12 Sodium Chloride 0.9% 10 Ml Flush Syringe IV 10 ml BID JAIME Administration Sodium Chloride 10 ml 10/03/21 23:02 Sodium Chloride 0.9% 10 Ml Flush Syringe IV PRN PRN LINE FLUSH
[2021-10-08] MEDS: MONTELUKAST 10 MG TAB PO SCH (22:05)
[2021-10-09] MEDS: methylPREDNISolone Sod Succinate 125 MG/2 ML INJ IV SCH ×3 (00:09→11:21)
[2021-10-09] MEDS: IPRATROPIUM/ALBUTEROL SULFATE 3 ML AMPUL.NEB IH SCH ×3 (01:15→13:19)
[2021-10-09] MEDS: BUDESONIDE 0.5 MG/2 ML NEBU IH SCH (07:42)
--- NOTE | 2021-10-09 10:53 | Progress Note ---
Assessment and Plan 36 y/o male with acute respiratory failure secondary to exacerbation of severe persistent asthma. 10/09/21: Patient stable, no objection to discharge pulm cullen. Please see my suggested taper below for steroids. Resume home asthma regimen. 10/08/21: Bipap can be made PRN. Continue high dose steroids. I walked patient on remote telebox. Did drop to 85 transiently but this was literally after we had stopped walking. Will ask RT to walk with our continuous pulse ox to assess oxygen needs. Likely discharge tomorrow and not today. Will need prolonged steroid taper as follows: 60 daily for 4 days, 40 daily for 4 days then 20 da julia for 4 days then 10 daily for 4 days then stop. Ok to resume home asthma regimen at discharge. 10/07/21: Same recs as previous. Will assess tomorrow if bipap can be stopped at night. Not ready to wean steroids yet. 10/06/21: Continue high dose steroids. Bipap PRN and QHS. 10/05/21: Continue high dose steroids. Bipap must be worn at night and PRN during the day. Given the amount of distress this am, will leave on continuous therapy for now. Discussed with charge nurse and rT today that NIV must be worn tonight and if any questions please call me as I am test conductor [phone]. 1. Increase steroids to 60q6 2. Agree with BId pulmicort and scheduled duonebs 3. Restart singular 4. Will add GERD therapy BID 5. NIV at night to give lungs a rest until bronchospasm has improved Will continue to follow along with you. Thank you for this consult Subjective Date of service: 10/09/21 Interval history: no acute events. Repeat walk test showed patient did not need oxygen therapy. Objective Vital Signs - 12hr 10/09/21 10/09/21 10/09/21 00:23 04:01 07:42 Temperature 97.8 F 97.8 F Pulse Rate 102 H 106 H Pulse Rate [ 115 H Bilateral] Respiratory 20 20 Rate Respiratory 18 Rate [Bilateral ] Blood Pressure 136/89 149/100 O2 Sat by Pulse 97 95 97 Oximetry Constitutional: appears uncomfortable, other (mild respiratory distress) Eyes: non-icteric, other (wearing corrective lens) ENT: oropharynx moist Neck: supple Effort: mildly labored Ascultation: Bilateral: wheezes Percussion: Bilateral: not dull Tactile fremitus: Bilateral: normal Cardiovascular: other (sinus tach) Gastrointestinal: normoactive bowel sounds, soft Integumentary: normal Extremities: no edema Neurologic: normal mental status, non-focal exam Psychiatric: mood appropriate CBC and BMP: 10/05/21 05:06 10/05/21 05:06 ABG, PT/INR, D-dimer: ABG ABG pH 7.368 pH Units (7.350-7.450) 10/05/21 08:11 ABG pCO2 57.1 mm Hg 10/05/21 08:11 ABG pO2 70.7 mm Hg (80.0-90.0) L 10/05/21 08:11 ABG O2 Saturation 95.0 % (95.0-99.0) 10/05/21 08:11 Abnormal lab findings: Abnormal Labs 10/03/21 10/03/21 10/04/21 21:08 21:08 04:48 WBC 17.8 H 12.4 H RBC 5.69 H 5.91 H Hgb 17.0 H 17.4 H Hct 51.0 H 53.9 H Lymph % (Auto) 7.0 L Seg Neutrophils % 88.1 H Seg Neuts % (Manual) 89.0 H Lymphocytes % (Manual) 8.0 L Seg Neutrophils # 15.7 H Seg Neutrophils # Man 11.0 H Lymphocytes # (Manual) 1.0 L ABG pO2 ABG HCO3 ABG Base Excess Oxyhemoglobin Sodium Potassium Chloride 97.0 L Carbon Dioxide BUN Glucose 122 H 10/04/21 10/05/21 10/05/21 04:48 05:06 05:06 WBC 16.4 H RBC 5.17 H Hgb Hct 46.3 H D Lymph % (Auto) Seg Neutrophils % Seg Neuts % (Manual) 94.0 H Lymphocytes % (Manual) 5.0 L Seg Neutrophils # Seg Neutrophils # Man 15.4 H Lymphocytes # (Manual) 0.8 L ABG pO2 ABG HCO3 ABG Base Excess Oxyhemoglobin Sodium 136 L Potassium 5.4 H D Chloride 95.8 L 97.7 L Carbon Dioxide 31 H D BUN 21 H Glucose 174 H 143 H 10/05/21 08:11 WBC RBC Hgb Hct Lymph % (Auto) Seg Neutrophils % Seg Neuts % (Manual) Lymphocytes % (Manual) Seg Neutrophils # Seg Neutrophils # Man Lymphocytes # (Manual) ABG pO2 70.7 L ABG HCO3 32.2 H ABG Base Excess 5.0 H Oxyhemoglobin 93.5 L Sodium Potassium Chloride Carbon Dioxide BUN Glucose
[2021-10-09] MEDS: FAMOTIDINE 20 MG TAB PO SCH (11:21)
[2021-10-09] MEDS: LOSARTAN 50 MG TAB PO SCH (11:21)
--- NOTE | 2021-10-09 11:48 | Discharge Summary ---
Providers - Providers Date of Admission: 10/03/21 23:02 Date of discharge: 10/09/21 Attending physician: SINA FRANKLIN MD 10/04/21 07:53 Consult to Physician [CONS] Routine Comment: Consulting Provider: ISAIAS ZIEGLER Physician Instructions: Reason For Exam: Status asthmaticus Primary care physician: KEVIN RENDON Hospitalization Reason for admission: asthma exacerbation Condition: Stable Hospital course: Patient is a 36-year-old male with history of asthma and intubation for res piratory failure in the past who presented with wheezing and dyspnea. He was admitted for respiratory distress and started on BiPAP. He was started on IV steroids and Pulmnology was consulted. Patient clinically improved and was started on oral steroid taper. Once stable, patient was discharged with instructions to follow-up with pulmonology. Disposition: 01 HOME / SELF CARE / HOMELESS Final Discharge Diagnosis (Prints w/discharge instructions): Status asthmaticus. Tobacco dependence. Elevated blood pressure Time spent for discharge: 30 minutes Core Measure Documentation - Palliative Care Palliative Care/ Comfort Measures: Not Applicable - Core Measures Any of the following diagnoses?: none Exam - Physical Exam Narrative exam: GENERAL: Well-developed well-nourished. Sitting on the side of the bed in no acute distress. HEENT: Normocephalic. Atraumatic. NECK: Supple. CHEST/LUNGS: Prolonged expiratory phase. No wheezing appreciated. HEART/CARDIOVASCULAR: Tachycardic. No murmur, rubs or gallops appreciated. ABDOMEN: +BS. NT/ND. SKIN: No rashes noted. NEURO: No focal motor deficit. Follows all commands and is ambulatory. MUSCULOSKELETAL: No joint effusion EXTREMITIES: No cyanosis, clubbing or edema. PSYCH: Cooperative. - Constitutional Vitals: Temp Pulse Resp BP Pulse Ox 97.8 F 115 H 18 149/100 97 10/09/21 04:01 10/09/21 07:42 10/09/21 07:42 10/09/21 04:01 10/09/21 07:42 Plan Care Plan Goals: Please make sure you take the steroid taper as instructed. We advised that you stop smoking to better control your asthma. Please make an appointment within the next 2 weeks with [employer], Dr. Ziegler. Follow up with: KEVIN RENDON MD [Primary Care Provider] - 3-5 Days CRISS WELCH MD [Staff Physician] - 14 Days ISAIAS ZIEGLER MD [Staff Physician] - 14 Days Prescriptions: Montelukast [Singulair] 10 mg PO QHS #90 tablet predniSONE 10 mg PO QDAY #52 tab Albuterol Mdi (or & Nicu Only) [ProAir HFA Inhaler] 2 puff IH PRN PRN #1 in halation PRN Reason: Shortness Of Breath ALBUTEROL NEB's [Proventil 0.083% NEBS] 2.5 mg IH Q4H PRN 30 Days #180 neb PRN Reason: Wheezing
[2021-10-09 12:38] VITALS: BP 137/95
== END 2021-10-09 14:04 | disposition home or self-care (01) | DRG 203 ==
LOC: ED 18:32 → 4A 23:02
PROVIDERS: ADMIT Hospitalist; ATTEND Student in an Organized Health Care Education/Training Program
PROC: 5A09557 Assistance with Respiratory Ventilation, Greater than 96 Consecutive Hours, Continuous Positive Airway Pressure (ICD-10-PCS; 2021-10-03)
PROC: 4A033R1 Measurement of Arterial Saturation, Peripheral, Percutaneous Approach (ICD-10-PCS; principal; 2021-10-05)
DX: J45.902 Unspecified asthma with status asthmaticus (principal); F17.200 Nicotine dependence, unspecified, uncomplicated; Z20.822 Contact with and (suspected) exposure to COVID-19; Z71.6 Tobacco abuse counseling; D72.829 Elevated white blood cell count, unspecified; Z82.49 Family history of ischemic heart disease and other diseases of the circulatory system
CPT/HCPCS: 36415; 36600; 71045; 80048; 82803; 85007; 85025; 93005; 94640; 94644; 94660; 94760; 99406; G0378; J0696; J2405; J2920; J2930; J3475; Q0161; U0003